=== PATIENT | male | born 1940 | race Caucasian/White ===

== ENCOUNTER → 2017-11-27 | Outpatient (CLI) | payer MEDICARE, OTHER, MEDICAID | END | disposition home or self-care (01) | LOC: PUL 09:28 | DX: C34.90 Malignant neoplasm of unspecified part of unspecified bronchus or lung (principal) | CPT/HCPCS: 94010 ==

== ENCOUNTER 2017-12-09 14:04 | Emergency (ER) | payer MEDICARE, OTHER ==
[2017-12-09] MEDS: ONDANSETRON (ODT) 4 MG TAB ODT (15:45)
[2017-12-09] MEDS: HYDROCODONE/APAP (5/325) TAB PO (15:45)
== END 2017-12-09 18:06 | disposition home or self-care (01) ==
LOC: E/R 14:04
DX: S42.201A Unspecified fracture of upper end of right humerus, initial encounter for closed fracture (principal); I10 Essential (primary) hypertension; E11.9 Type 2 diabetes mellitus without complications; I25.10 Atherosclerotic heart disease of native coronary artery without angina pectoris; W19.XXXA Unspecified fall, initial encounter; Y92.9 Unspecified place or not applicable; Z85.118 Personal history of other malignant neoplasm of bronchus and lung; Z79.4 Long term (current) use of insulin; Z79.82 Long term (current) use of aspirin
CPT/HCPCS: 29105; 73030-RT; 73060-RT; 73080-RT; 99283-25

== ENCOUNTER 2018-10-04 12:56 | Inpatient (IN) | payer MEDICARE, MEDICAID, OTHER ==
[2018-10-04 13:19] LABS: ADD MAN DIFF? NO
[2018-10-04 13:23] LABS: ABNORMAL IP MESSAGE 1; BASOPHIL # 0.2 10^3/ul (0.0-0.1); BASOPHILS % 1.4 % (0.0-2.0); EOSINOPHILS # 0.2 10^3/ul (0.0-0.5); EOSINOPHILS % 1.4 % (0.0-7.0); HEMATOCRIT 56.2 % (42.0-52.0); HEMOGLOBIN 17.7 g/dl (14.0-18.0); LYMPHOCYTES % 6.4 % (15.0-51.0); MEAN CORPUSCULAR HEMOGLOBIN 32.4 pg (29.0-33.0); MEAN CORPUSCULAR HGB CONC 31.5 g/dl (32.0-37.0); MEAN CORPUSCULAR VOLUME 102.7 fl (82.0-101.0); MEAN PLATELET VOLUME 10.6 fl (7.4-10.4); MONOCYTE # 0.8 10^3/ul (0.3-0.9); MONOCYTES % 4.8 % (0.0-11.0); NEUTROPHIL # 13.7 10^3/ul (1.6-7.5); NEUTROPHILS % 84.5 % (39.0-77.0); NUCLEATED RED BLOOD CELLS% 0.2 /100WBC (0.0-0.0); PLATELET COUNT 361 10^3/UL (140-415); RED BLOOD COUNT 5.47 10^6/ul (4.70-6.10); RED CELL DISTRIBUTION WIDTH 24.7 % (11.5-14.5)
[2018-10-04 13:23] LABS: WHITE BLOOD COUNT 16.2 10^3/ul (4.8-10.8)
[2018-10-04 13:43] LABS: PROTIME 15.3 Sec (11.9-14.9); PT RATIO 1.2
[2018-10-04 13:44] LABS: PARTIAL THROMBOPLASTIN TIME 31.4 Sec (23.0-35.0)
[2018-10-04 13:47] LABS: ALANINE AMINOTRANSFERASE 13 IU/L (13-69); ALBUMIN 3.4 g/dl (3.3-4.9); ALBUMIN/GLOBULIN RATIO 1.03; ALKALINE PHOSPHATASE 101 IU/L (42-121); ANION GAP 10 (5-13); ASPARTATE AMINO TRANSFERASE 20 IU/L (15-46); BILIRUBIN,INDIRECT 0.6 mg/dl (0-1.1); BILIRUBIN,TOTAL 0.6 mg/dl (0.2-1.3); BLOOD UREA NITROGEN 42 mg/dl (7-20); CALCIUM 8.7 mg/dl (8.4-10.2); CARBON DIOXIDE 31 mmol/L (21-31); CHLORIDE 110 mmol/L (97-110); CREATININE 1.44 mg/dl (0.61-1.24); GLUCOSE 249 mg/dl (70-220); POTASSIUM 3.2 mmol/L (3.5-5.1); SODIUM 151 mmol/L (135-144); TOTAL PROTEIN 6.7 g/dl (6.1-8.1)
[2018-10-04] MEDS: SODIUM CHLORIDE 0.9% 1L BAG IV* (13:53)
[2018-10-04] MEDS: CEFEPIME 2GM/50 ML (PMX) 50 ML IVPB (13:53)
[2018-10-04 13:59] LABS: TROPONIN-I < 0.012 ng/ml (0.000-0.120)
[2018-10-04 14:34] LABS: ADD UMIC YES; UR ASCORBIC ACID NEGATIVE (NEGATIVE); UR BACTERIA FEW /HPF (NONE SEEN); UR BILIRUBIN (Dip) NEGATIVE (NEGATIVE); UR BLOOD (Dip) NEGATIVE (NEGATIVE); UR CLARITY CLEAR (CLEAR); UR COLOR YELLOW (YELLOW); UR GLUCOSE (Dip) NEGATIVE (NEGATIVE); UR KETONES (Dip) NEGATIVE (NEGATIVE); UR LEUKOCYTE ESTERASE (Dip) NEGATIVE Leu/ul (NEGATIVE); UR MUCUS FEW /HPF (NONE SEEN); UR NITRITE (Dip) NEGATIVE (NEGATIVE); UR RBC 0 /HPF (0-5); UR SPECIFIC GRAVITY (Dip) 1.016 (1.003-1.030); UR TOTAL PROTEIN (Dip) 2+ mg/dl (NEGATIVE); UR UROBILINOGEN (Dip) NEGATIVE (NEGATIVE); UR WBC 1 /HPF (0-5)
[2018-10-04] MEDS: VANCOMYCIN 1 GM (PMX) 250 ML IVPB (14:47)
[2018-10-04] MEDS ORDERED: ONDANSETRON 4 MG INJ IV ×2 (15:30→18:00)
[2018-10-04] MEDS ORDERED: ACETAMINOPHEN 325 MG TAB PO (15:30)
[2018-10-04] MEDS ORDERED: VANCOMYCIN IV PER PHARMACY XX (18:00)
[2018-10-04] MEDS ORDERED: GLUCOSE GEL 15 GRAM TUBE PO ×2 (18:30)
[2018-10-04] MEDS ORDERED: GLUCAGON 1 MG INJ IM (18:30)
[2018-10-04] MEDS ORDERED: DEXTROSE 50% 50 ML SYRINGE IV (18:30)
[2018-10-04] MEDS ORDERED: GLUCOSE GEL 15 GRAM TUBE BUCCAL (18:30)
[2018-10-04 18:34] LABS: LACTIC ACID 1.5 mmol/L (0.5-2.0)
[2018-10-04 18:49] LABS: HEMOGLOBIN A1C 8.1 % (0-5.9)
[2018-10-04] MEDS: SOD CHLORIDE 0.9% 1,000 ML IV (20:12)
[2018-10-04] MEDS: INSULIN ASPART [NOVOLOG] 3 ML PEN SC (20:14)
[2018-10-05] MEDS: INSULIN ASPART [NOVOLOG] 3 ML PEN SC ×6 (00:53→21:42)
[2018-10-05 05:18] LABS: ADD MAN DIFF? NO
[2018-10-05 05:23] LABS: WHITE BLOOD COUNT 14.3 10^3/ul (4.8-10.8)
[2018-10-05 05:23] LABS: ABNORMAL IP MESSAGE 1; BASOPHIL # 0.2 10^3/ul (0.0-0.1); BASOPHILS % 1.3 % (0.0-2.0); EOSINOPHILS # 0.3 10^3/ul (0.0-0.5); EOSINOPHILS % 2.3 % (0.0-7.0); HEMATOCRIT 55.6 % (42.0-52.0); HEMOGLOBIN 17.3 g/dl (14.0-18.0); LYMPHOCYTES # 0.8 10^3/ul (0.8-2.9); LYMPHOCYTES % 5.7 % (15.0-51.0); MEAN CORPUSCULAR HEMOGLOBIN 32.3 pg (29.0-33.0); MEAN CORPUSCULAR HGB CONC 31.1 g/dl (32.0-37.0); MEAN CORPUSCULAR VOLUME 103.7 fl (82.0-101.0); MEAN PLATELET VOLUME 11.4 fl (7.4-10.4); MONOCYTE # 0.6 10^3/ul (0.3-0.9); MONOCYTES % 4.1 % (0.0-11.0); NEUTROPHIL # 12.1 10^3/ul (1.6-7.5); NEUTROPHILS % 84.6 % (39.0-77.0); PLATELET COUNT 308 10^3/UL (140-415); POSITIVE DIFF @See below; RED BLOOD COUNT 5.36 10^6/ul (4.70-6.10); RED CELL DISTRIBUTION WIDTH 24.7 % (11.5-14.5)
[2018-10-05 05:52] LABS: ANION GAP 12 (5-13); BLOOD UREA NITROGEN 40 mg/dl (7-20); CALCIUM 8.2 mg/dl (8.4-10.2); CARBON DIOXIDE 28 mmol/L (21-31); CHLORIDE 117 mmol/L (97-110); CREATININE 1.18 mg/dl (0.61-1.24); GLUCOSE 195 mg/dl (70-220); SODIUM 157 mmol/L (135-144)
[2018-10-05] MEDS: SOD CHLORIDE 0.9% 1,000 ML IV ×3 (07:29→14:00)
[2018-10-05] MEDS: ENOXAPARIN 30 MG/0.3 ML SYG SC (08:27)
[2018-10-05] MEDS: VANCOMYCIN 1 GM in DEXTROSE 5% 250 ML IVPB (12:11)
[2018-10-05] MEDS ORDERED: VANCOMYCIN 750 MG (PMX) 250 ML IVPB (13:00)
[2018-10-05] MEDS: AMLODIPINE 10 MG TAB PO (21:00)
[2018-10-05] MEDS: LEVETIRACETAM 500 MG TAB PO (21:00)
[2018-10-05] MEDS: HYDROXYUREA 500 MG CAP PO (21:00)
[2018-10-05] MEDS: ATORVASTATIN 80 MG TAB PO (21:00)
[2018-10-05] MEDS: CEFEPIME 1GM/50 ML (PMX) 50 ML IVPB (21:36)
[2018-10-05] MEDS: INSULIN GLARGINE [LANTus] (100 UNITS/ML) SYG SC (21:42)
[2018-10-06] MEDS: SOD CHLORIDE 0.9% 1,000 ML IV ×2 (00:37→11:19)
[2018-10-06] MEDS: INSULIN ASPART [NOVOLOG] 3 ML PEN SC ×6 (00:41→21:00)
[2018-10-06 04:50] LABS: ADD MAN DIFF? NO
[2018-10-06 04:51] LABS: WHITE BLOOD COUNT 14.6 10^3/ul (4.8-10.8)
[2018-10-06 04:51] LABS: ABNORMAL IP MESSAGE 1; BASOPHIL # 0.2 10^3/ul (0.0-0.1); BASOPHILS % 1.5 % (0.0-2.0); EOSINOPHILS # 0.4 10^3/ul (0.0-0.5); EOSINOPHILS % 2.9 % (0.0-7.0); HEMATOCRIT 55.8 % (42.0-52.0); HEMOGLOBIN 17.2 g/dl (14.0-18.0); LYMPHOCYTES % 6.5 % (15.0-51.0); MEAN CORPUSCULAR HGB CONC 30.8 g/dl (32.0-37.0); MEAN CORPUSCULAR VOLUME 103.9 fl (82.0-101.0); MEAN PLATELET VOLUME 11.4 fl (7.4-10.4); MONOCYTE # 0.7 10^3/ul (0.3-0.9); MONOCYTES % 4.6 % (0.0-11.0); NEUTROPHILS % 81.9 % (39.0-77.0); PLATELET COUNT 323 10^3/UL (140-415); POSITIVE DIFF @See below; RED BLOOD COUNT 5.37 10^6/ul (4.70-6.10); RED CELL DISTRIBUTION WIDTH 23.9 % (11.5-14.5)
[2018-10-06 05:21] LABS: ANION GAP 6 (5-13); BLOOD UREA NITROGEN 29 mg/dl (7-20); CALCIUM 8.3 mg/dl (8.4-10.2); CARBON DIOXIDE 30 mmol/L (21-31); CHLORIDE 123 mmol/L (97-110); CREATININE 0.95 mg/dl (0.61-1.24); GLUCOSE 134 mg/dl (70-220); POTASSIUM 3.1 mmol/L (3.5-5.1); SODIUM 159 mmol/L (135-144)
[2018-10-06] MEDS: AMIODARONE 200 MG TAB PO (08:45)
[2018-10-06] MEDS: ASPIRIN (EC) 81 MG TAB PO (08:45)
[2018-10-06] MEDS: FAMOTIDINE 20 MG TAB PO (08:46)
[2018-10-06] MEDS: LEVETIRACETAM 500 MG TAB PO ×2 (08:46→21:00)
[2018-10-06] MEDS: ESCITALOPRAM 10 MG TAB PO (08:46)
[2018-10-06] MEDS: FUROSEMIDE 20 MG TAB PO (08:46)
[2018-10-06] MEDS: HYDROXYUREA 500 MG CAP PO ×2 (08:46→21:00)
[2018-10-06] MEDS: AMLODIPINE 10 MG TAB PO ×2 (08:46→21:00)
[2018-10-06] MEDS: LISINOPRIL 20 MG TAB PO (08:47)
[2018-10-06] MEDS: CEFEPIME 1GM/50 ML (PMX) 50 ML IVPB ×2 (08:51→21:40)
[2018-10-06] MEDS: ENOXAPARIN 30 MG/0.3 ML SYG SC (08:52)
[2018-10-06] MEDS: VANCOMYCIN 1 GM in DEXTROSE 5% 250 ML IVPB (12:37)
[2018-10-06] MEDS: D5W-0.45 NACL + KCL 20 MEQ 1,000 ML IV (18:06)
[2018-10-06] MEDS: morphine 4 MG/ML VIAL IV (18:07)
[2018-10-06] MEDS: ATORVASTATIN 80 MG TAB PO (21:00)
[2018-10-06] MEDS: INSULIN GLARGINE [LANTus] (100 UNITS/ML) SYG SC (21:50)
[2018-10-06] MEDS: POTASSIUM CHLORIDE 100 ML IVPB (22:16)
[2018-10-07] MEDS: POTASSIUM CHLORIDE 100 ML IVPB (00:34)
[2018-10-07] MEDS: INSULIN ASPART [NOVOLOG] 3 ML PEN SC ×6 (02:01→20:51)
[2018-10-07] MEDS: D5W-0.45 NACL + KCL 20 MEQ 1,000 ML IV ×4 (03:30→23:30)
[2018-10-07] MEDS: FAMOTIDINE 20 MG TAB PO (09:00)
[2018-10-07] MEDS: LEVETIRACETAM 500 MG TAB PO ×2 (09:00→20:47)
[2018-10-07] MEDS: AMLODIPINE 10 MG TAB PO ×2 (09:00→20:48)
[2018-10-07] MEDS: LISINOPRIL 20 MG TAB PO (09:00)
[2018-10-07] MEDS: FUROSEMIDE 20 MG TAB PO (09:00)
[2018-10-07] MEDS: AMIODARONE 200 MG TAB PO (09:00)
[2018-10-07] MEDS: HYDROXYUREA 500 MG CAP PO ×2 (09:00→20:47)
[2018-10-07] MEDS: ESCITALOPRAM 10 MG TAB PO (09:00)
[2018-10-07] MEDS: ASPIRIN (EC) 81 MG TAB PO (09:00)
[2018-10-07] MEDS: CEFEPIME 1GM/50 ML (PMX) 50 ML IVPB ×2 (09:28→20:45)
[2018-10-07] MEDS: ENOXAPARIN 30 MG/0.3 ML SYG SC (09:31)
[2018-10-07] MEDS: VANCOMYCIN 1 GM in DEXTROSE 5% 250 ML IVPB (12:04)
[2018-10-07 17:39] LABS: ANION GAP 8 (5-13); BLOOD UREA NITROGEN 21 mg/dl (7-20); CALCIUM 8.2 mg/dl (8.4-10.2); CARBON DIOXIDE 31 mmol/L (21-31); CHLORIDE 119 mmol/L (97-110); CREATININE 0.86 mg/dl (0.61-1.24); GLUCOSE 191 mg/dl (70-220); POTASSIUM 3.8 mmol/L (3.5-5.1); SODIUM 158 mmol/L (135-144)
[2018-10-07] MEDS: ATORVASTATIN 80 MG TAB PO (20:48)
[2018-10-07] MEDS: INSULIN GLARGINE [LANTus] (100 UNITS/ML) SYG SC (20:50)
[2018-10-08] MEDS: INSULIN ASPART [NOVOLOG] 3 ML PEN SC ×6 (01:32→21:58)
[2018-10-08 05:45] LABS: ABNORMAL IP MESSAGE 1; HEMATOCRIT 55.6 % (42.0-52.0); HEMOGLOBIN 17.2 g/dl (14.0-18.0); MEAN CORPUSCULAR HGB CONC 30.9 g/dl (32.0-37.0); MEAN CORPUSCULAR VOLUME 106.5 fl (82.0-101.0); MEAN PLATELET VOLUME 11.8 fl (7.4-10.4); PLATELET COUNT 251 10^3/UL (140-415); POSITIVE DIFF @See below; RED BLOOD COUNT 5.22 10^6/ul (4.70-6.10); RED CELL DISTRIBUTION WIDTH 22.8 % (11.5-14.5)
[2018-10-08 05:45] LABS: WHITE BLOOD COUNT 12.5 10^3/ul (4.8-10.8)
[2018-10-08 06:16] LABS: ADD MAN DIFF? YES
[2018-10-08 06:29] LABS: ANION GAP 7 (5-13); BLOOD UREA NITROGEN 18 mg/dl (7-20); CALCIUM 8.3 mg/dl (8.4-10.2); CARBON DIOXIDE 30 mmol/L (21-31); CHLORIDE 120 mmol/L (97-110); CREATININE 0.94 mg/dl (0.61-1.24); GLUCOSE 195 mg/dl (70-220); POTASSIUM 3.8 mmol/L (3.5-5.1); SODIUM 157 mmol/L (135-144)
[2018-10-08] MEDS: D5W-0.45 NACL + KCL 20 MEQ 1,000 ML IV ×2 (07:32→08:55)
[2018-10-08 07:48] LABS: ANISOCYTOSIS 1+ (0-0); BAND NEUTROPHILS #M 2.2 10^3/ul (0.0-0.6); BAND NEUTROPHILS % (M) 18 % (0-4); BASOPHIL #M 0.2 10^3/ul (0.0-0.0); BASOPHILS % (M) 2 % (0-2); BURR CELLS 1+ (0-0); EOSINOPHILS % (M) 1 % (0-7); LYMPHOCYTES #M 0.6 10^3/ul (0.8-2.9); LYMPHOCYTES % (M) 5 % (15-51); METAMYELOCYTES #M 0.1 10^3/ul (0.0-0.0); METAMYELOCYTES %M 1 % (0-0); MICROCYTOSIS 1+ (0-0); MONOCYTE #M 0.2 10^3/ul (0.3-0.9); MONOCYTES % (M) 2 % (0-11); MYELOCYTES #M 0.1 10^3/ul (0.0-0.0); MYELOCYTES % (M) 1 % (0-0); OVALOCYTES 2+ (0-0); PLATELET ESTIMATE NORMAL; POIKILOCYTOSIS 1+ (0-0); POLYCHROMASIA 3+ (0-0); REACTIVE LYMPHOCYTES #M 0.6 10^3/ul (0.0-0.0); REACTIVE LYMPHOCYTES% (M) 5 % (0-0); SCHISTOCYTES 1+ (0-0); SEG NEUT #M 8.4 10^3/ul (1.6-7.5); SEGMENTED NEUTROPHILS (M) % 65 % (39-77); SMUDGE%M 10 % (0-0)
[2018-10-08] MEDS: CEFEPIME 1GM/50 ML (PMX) 50 ML IVPB (08:49)
[2018-10-08] MEDS: ENOXAPARIN 30 MG/0.3 ML SYG SC (08:52)
[2018-10-08] MEDS: AMIODARONE 200 MG TAB PO (08:55)
[2018-10-08] MEDS: FUROSEMIDE 20 MG TAB PO (08:56)
[2018-10-08] MEDS: LISINOPRIL 20 MG TAB PO (08:56)
[2018-10-08] MEDS: ESCITALOPRAM 10 MG TAB PO (08:56)
[2018-10-08] MEDS: LEVETIRACETAM 500 MG TAB PO (08:56)
[2018-10-08] MEDS: FAMOTIDINE 20 MG TAB PO (08:56)
[2018-10-08] MEDS: ASPIRIN (EC) 81 MG TAB PO (08:56)
[2018-10-08] MEDS: AMLODIPINE 10 MG TAB PO ×2 (08:56→21:44)
[2018-10-08] MEDS: HYDROXYUREA 500 MG CAP PO ×2 (08:56→21:00)
[2018-10-08 11:50] LABS: VANCOMYCIN,TROUGH 9.5 ug/ml (10.0-20.0)
[2018-10-08] MEDS: POTASSIUM CHLORIDE 30 MEQ in DEXTROSE 5% 1,000 ML IV (13:19)
[2018-10-08 19:01] LABS: CREATINE KINASE 30 IU/L (23-200)
[2018-10-08 19:13] LABS: CK INDEX 1.2; CK-MB 0.35 ng/ml (0.0-2.4); TROPONIN-I < 0.012 ng/ml (0.000-0.120)
[2018-10-08] MEDS: ATORVASTATIN 80 MG TAB PO (21:42)
[2018-10-08] MEDS: INSULIN GLARGINE [LANTus] (100 UNITS/ML) SYG SC (21:44)
[2018-10-08] MEDS: LEVETIRACETAM 500 MG (PMX) 100 ML IVPB (21:52)
[2018-10-09] MEDS: POTASSIUM CHLORIDE 30 MEQ in DEXTROSE 5% 1,000 ML IV ×3 (00:42→16:12)
[2018-10-09 01:11] LABS: CREATINE KINASE 28 IU/L (23-200)
[2018-10-09 01:25] LABS: CK INDEX 1.3; CK-MB 0.35 ng/ml (0.0-2.4); TROPONIN-I < 0.012 ng/ml (0.000-0.120)
[2018-10-09 05:45] LABS: ADD MAN DIFF? NO
[2018-10-09 05:58] LABS: WHITE BLOOD COUNT 14.1 10^3/ul (4.8-10.8)
[2018-10-09 05:58] LABS: ABNORMAL IP MESSAGE 1; BASOPHIL # 0.2 10^3/ul (0.0-0.1); BASOPHILS % 1.1 % (0.0-2.0); EOSINOPHILS # 0.4 10^3/ul (0.0-0.5); EOSINOPHILS % 2.6 % (0.0-7.0); HEMATOCRIT 52.8 % (42.0-52.0); LYMPHOCYTES # 1.1 10^3/ul (0.8-2.9); LYMPHOCYTES % 7.6 % (15.0-51.0); MEAN CORPUSCULAR HEMOGLOBIN 32.7 pg (29.0-33.0); MEAN CORPUSCULAR HGB CONC 30.3 g/dl (32.0-37.0); MEAN CORPUSCULAR VOLUME 107.8 fl (82.0-101.0); MEAN PLATELET VOLUME 13.1 fl (7.4-10.4); MONOCYTE # 0.8 10^3/ul (0.3-0.9); MONOCYTES % 5.3 % (0.0-11.0); NEUTROPHIL # 11.3 10^3/ul (1.6-7.5); NEUTROPHILS % 80.4 % (39.0-77.0); PLATELET COUNT 265 10^3/UL (140-415); POSITIVE DIFF @See below; RED CELL DISTRIBUTION WIDTH 21.8 % (11.5-14.5)
[2018-10-09] MEDS: INSULIN ASPART [NOVOLOG] 3 ML PEN SC ×4 (06:00→23:49)
[2018-10-09 06:12] LABS: CHOL/HDL RATIO 4.1 RATIO; HDL CHOLESTEROL 20 mg/dl (31-75); LDL CHOLESTEROL,CALCULATED 44 mg/dl; TRIGLYCERIDES 96 mg/dl (0-149)
[2018-10-09 06:12] LABS: CHOLESTEROL 83 mg/dl (100-200)
[2018-10-09 06:18] LABS: CREATINE KINASE 40 IU/L (23-200)
[2018-10-09 06:20] LABS: ANION GAP 5 (5-13); BLOOD UREA NITROGEN 20 mg/dl (7-20); CARBON DIOXIDE 31 mmol/L (21-31); CHLORIDE 118 mmol/L (97-110); CREATININE 0.99 mg/dl (0.61-1.24); GLUCOSE 229 mg/dl (70-220); POTASSIUM 4.1 mmol/L (3.5-5.1); SODIUM 154 mmol/L (135-144)
[2018-10-09 06:27] LABS: CK INDEX 0.7; CK-MB 0.28 ng/ml (0.0-2.4); TROPONIN-I < 0.012 ng/ml (0.000-0.120)
[2018-10-09 09:03] LABS: ANISOCYTOSIS 1+ (0-0); BAND NEUTROPHILS #M 1.6 10^3/ul (0.0-0.6); BAND NEUTROPHILS % (M) 12 % (0-4); BASOPHIL #M 0.1 10^3/ul (0.0-0.0); BASOPHILS % (M) 1 % (0-2); EOSINOPHILS % (M) 4 % (0-7); GIANT THROMBO% (M) 1 % (0-0); LYMPHOCYTES #M 1.2 10^3/ul (0.8-2.9); LYMPHOCYTES % (M) 9 % (15-51); METAMYELOCYTES #M 0.1 10^3/ul (0.0-0.0); METAMYELOCYTES %M 1 % (0-0); MONOCYTE #M 0.7 10^3/ul (0.3-0.9); MONOCYTES % (M) 5 % (0-11); OVALOCYTES 1+ (0-0); PLATELET ESTIMATE NORMAL; POIKILOCYTOSIS 1+ (0-0); POLYCHROMASIA 2+ (0-0); REACTIVE LYMPHOCYTES #M 0.1 10^3/ul (0.0-0.0); REACTIVE LYMPHOCYTES% (M) 1 % (0-0); SEG NEUT #M 9.7 10^3/ul (1.6-7.5); SEGMENTED NEUTROPHILS (M) % 67 % (39-77); SMUDGE%M 7 % (0-0); SPHEROCYTES 1+ (0-0); TARGET CELLS 1+ (0-0)
[2018-10-09] MEDS: ASPIRIN (EC) 81 MG TAB PO (10:26)
[2018-10-09] MEDS: AMIODARONE 200 MG TAB NGT (10:27)
[2018-10-09] MEDS: FAMOTIDINE 20 MG TAB NGT (10:27)
[2018-10-09] MEDS: LISINOPRIL 20 MG TAB PO (10:28)
[2018-10-09] MEDS: LEVETIRACETAM 500 MG (PMX) 100 ML IVPB ×2 (10:43→20:53)
[2018-10-09] MEDS: HYDROXYUREA NGT ×2 (12:40→21:04)
[2018-10-09] MEDS ORDERED: ATORVASTATIN 80 MG TAB (19:50)
[2018-10-09] MEDS: ATORVASTATIN 80 MG TAB NGT (20:53)
[2018-10-09] MEDS: INSULIN GLARGINE [LANTus] (100 UNITS/ML) SYG SC (21:02)
[2018-10-10] MEDS: POTASSIUM CHLORIDE 30 MEQ in DEXTROSE 5% 1,000 ML IV ×2 (02:06→04:00)
[2018-10-10 06:01] LABS: PLATELET COUNT 216 10^3/UL (140-415)
[2018-10-10 06:02] LABS: ABNORMAL IP MESSAGE 1; HEMATOCRIT 50.7 % (42.0-52.0); HEMOGLOBIN 15.3 g/dl (14.0-18.0); MEAN CORPUSCULAR HEMOGLOBIN 32.9 pg (29.0-33.0); MEAN CORPUSCULAR HGB CONC 30.2 g/dl (32.0-37.0); PLATELET COUNT 180 10^3/UL (140-415); POSITIVE DIFF @See below; RED BLOOD COUNT 4.65 10^6/ul (4.70-6.10); RED CELL DISTRIBUTION WIDTH 21.4 % (11.5-14.5)
[2018-10-10 06:02] LABS: WHITE BLOOD COUNT 12.7 10^3/ul (4.8-10.8)
[2018-10-10 06:18] LABS: PROTIME 14.3 Sec (11.9-14.9); PT RATIO 1.1
[2018-10-10 06:19] LABS: PARTIAL THROMBOPLASTIN TIME 34.6 Sec (23.0-35.0)
[2018-10-10 06:21] LABS: THROMBIN TIME 18.4 SEC (13.8-19.1)
[2018-10-10 06:23] LABS: ADD MAN DIFF? YES
[2018-10-10] MEDS: INSULIN ASPART [NOVOLOG] 3 ML PEN SC ×4 (06:25→23:55)
[2018-10-10 06:34] LABS: ANION GAP 3 (5-13); BLOOD UREA NITROGEN 34 mg/dl (7-20); CALCIUM 7.5 mg/dl (8.4-10.2); CARBON DIOXIDE 28 mmol/L (21-31); CHLORIDE 115 mmol/L (97-110); CREATININE 1.16 mg/dl (0.61-1.24); GLUCOSE 326 mg/dl (70-220); POTASSIUM 4.6 mmol/L (3.5-5.1); SODIUM 146 mmol/L (135-144)
[2018-10-10] MEDS ORDERED: SEVOFLURANE 15 MIN (07:00)
[2018-10-10 07:54] LABS: ANISOCYTOSIS 1+ (0-0); BAND NEUTROPHILS #M 1.5 10^3/ul (0.0-0.6); BAND NEUTROPHILS % (M) 12 % (0-4); EOSINOPHILS % (M) 2 % (0-7); GIANT THROMBO% (M) 8 % (0-0); LYMPHOCYTES #M 1.1 10^3/ul (0.8-2.9); LYMPHOCYTES % (M) 9 % (15-51); METAMYELOCYTES #M 0.1 10^3/ul (0.0-0.0); METAMYELOCYTES %M 1 % (0-0); MONOCYTE #M 0.5 10^3/ul (0.3-0.9); MONOCYTES % (M) 4 % (0-11); OVALOCYTES 1+ (0-0); PLATELET ESTIMATE NORMAL; POIKILOCYTOSIS 2+ (0-0); POLYCHROMASIA 2+ (0-0); REACTIVE LYMPHOCYTES #M 0.1 10^3/ul (0.0-0.0); REACTIVE LYMPHOCYTES% (M) 1 % (0-0); SEG NEUT #M 9.2 10^3/ul (1.6-7.5); SEGMENTED NEUTROPHILS (M) % 71 % (39-77); SMUDGE%M 9 % (0-0)
[2018-10-10] MEDS: ASPIRIN (EC) 81 MG TAB PO (09:00)
[2018-10-10] MEDS: ESCITALOPRAM 10 MG TAB NGT (09:00)
[2018-10-10] MEDS: LISINOPRIL 20 MG TAB PO (09:00)
[2018-10-10] MEDS: AMIODARONE 200 MG TAB NGT (09:00)
[2018-10-10] MEDS: HYDROXYUREA NGT ×2 (09:00→21:00)
[2018-10-10] MEDS: FAMOTIDINE 20 MG TAB NGT (09:00)
[2018-10-10] MEDS: LEVETIRACETAM 500 MG (PMX) 100 ML IVPB ×2 (10:33→20:34)
[2018-10-10] MEDS ORDERED: GELATIN SIZE 100 SPONGE (15:11)
[2018-10-10] MEDS ORDERED: THROMBIN 5000 UNIT VIAL (15:11)
[2018-10-10] MEDS ORDERED: BACITRACIN/POLYMYXIN 28.35 GM OINT TOP (15:11)
[2018-10-10] MEDS ORDERED: BUPIVACAINE 0.5%/EPI (SDV) 30 ML INJ (15:11)
[2018-10-10] MEDS ORDERED: LIDOCAINE 1% (MPF) 30 ML INJ (15:11)
[2018-10-10] MEDS ORDERED: MIDAZOLAM 1 MG/ML 2 ML INJ (15:17)
[2018-10-10] MEDS ORDERED: ROCURONIUM 50 MG INJ (15:17)
[2018-10-10] MEDS ORDERED: FENTAnyl 50 MCG/ML VIAL (15:17)
[2018-10-10] MEDS ORDERED: ETOMIDATE 20 MG INJ (15:17)
[2018-10-10] MEDS ORDERED: PHENYLephrine (100 MCG/ML) 5ML SYG ×2 (15:29→16:25)
[2018-10-10] MEDS ORDERED: ONDANSETRON 4 MG INJ IV (15:30)
[2018-10-10] MEDS ORDERED: hydrALAzine 20 MG INJ IV (15:30)
[2018-10-10] MEDS ORDERED: HYDROmorphONE 0.5 MG/0.5 ML SYG IV ×3 (15:30)
[2018-10-10] MEDS ORDERED: FENTAnyl 50 MCG/ML VIAL IV ×3 (15:30)
[2018-10-10] MEDS ORDERED: EPHEDrine SULFATE 50 MG/5 ML SYG IV (15:30)
[2018-10-10] MEDS ORDERED: LABETALOL HCL 20MG INJ IV (15:30)
[2018-10-10] MEDS ORDERED: ONDANSETRON 4 MG INJ (16:25)
[2018-10-10] MEDS ORDERED: DEXAMETHASONE 4 MG/ML 5 ML INJ (16:25)
[2018-10-10] MEDS ORDERED: METOCLOPRAMIDE 10 MG INJ (16:25)
[2018-10-10] MEDS ORDERED: CEFAZOLIN 1 GM INJ (16:25)
[2018-10-10] MEDS ORDERED: niCARdipine-NS 0.1MG/ML DRIP 200 ML IV (17:00)
[2018-10-10] MEDS: POLYMYXIN/BACITRACIN 1L IRRIG IRR (17:13)
[2018-10-10 17:56] LABS: AADO2 Arterial 549.2 mmHg (7.0-24.0); Arterial Base Excess -4.7 mmol/L (-3.0-3); Arterial Blood Gas Oxygen Sat 96.6 mmHG (95.0-100.0); Arterial COHb 0.6 % (0.0-3.0); Arterial Fraction of Oxyhgb 95.6 % (93.0-99.0); Arterial HCO3 24.5 mmol/L (22.0-26.0); Arterial MetHb 0.4 % (0.0-1.5); MODE VENT - AC; Site A-Line
[2018-10-10] MEDS: CEFAZOLIN 2 GM/50 ML (PMX) 50 ML IVPB (18:04)
[2018-10-10] MEDS: NS + KCL 20 MEQ 1,000 ML IV (18:05)
[2018-10-10] MEDS: ATORVASTATIN 80 MG TAB NGT (20:35)
[2018-10-10 20:46] LABS: AADO2 Arterial 571.6 mmHg (7.0-24.0); Arterial Base Excess -2.9 mmol/L (-3.0-3); Arterial Blood Gas Oxygen Sat 96.4 mmHG (95.0-100.0); Arterial COHb 0.9 % (0.0-3.0); Arterial Fraction of Oxyhgb 95.1 % (93.0-99.0); Arterial HCO3 24.1 mmol/L (22.0-26.0); Arterial MetHb 0.4 % (0.0-1.5); MODE VENT - AC; Site A-Line
[2018-10-10] MEDS: INSULIN GLARGINE [LANTus] (100 UNITS/ML) SYG SC (21:02)
[2018-10-10] MEDS ORDERED: SOD CHLORIDE 0.9% 500 ML IV (22:30)
[2018-10-10] MEDS: SOD CHLORIDE 0.9% 500 ML IV (22:59)
[2018-10-11] MEDS: SOD CHLORIDE 0.9% 500 ML IV (00:05)
[2018-10-11] MEDS: NORepinephrine 8MG/250 ML (PMX 250 ML IV (01:02)
[2018-10-11 05:28] LABS: WHITE BLOOD COUNT 17.4 10^3/ul (4.8-10.8)
[2018-10-11 05:28] LABS: ABNORMAL IP MESSAGE 1; HEMATOCRIT 48.7 % (42.0-52.0); HEMOGLOBIN 14.9 g/dl (14.0-18.0); MEAN CORPUSCULAR HEMOGLOBIN 33.1 pg (29.0-33.0); MEAN CORPUSCULAR HGB CONC 30.6 g/dl (32.0-37.0); MEAN CORPUSCULAR VOLUME 108.2 fl (82.0-101.0); PLATELET COUNT 292 10^3/UL (140-415); POSITIVE DIFF @See below; RED CELL DISTRIBUTION WIDTH 20.8 % (11.5-14.5)
[2018-10-11 05:39] LABS: ADD MAN DIFF? YES
[2018-10-11 06:04] LABS: ANION GAP 7 (5-13); BLOOD UREA NITROGEN 35 mg/dl (7-20); CALCIUM 7.4 mg/dl (8.4-10.2); CARBON DIOXIDE 25 mmol/L (21-31); CHLORIDE 116 mmol/L (97-110); CREATININE 1.08 mg/dl (0.61-1.24); GLUCOSE 266 mg/dl (70-220); SODIUM 148 mmol/L (135-144)
[2018-10-11 06:14] LABS: MAGNESIUM 2.1 mg/dl (1.7-2.5)
[2018-10-11 06:14] LABS: PHOSPHORUS 3.3 mg/dl (2.5-4.9)
[2018-10-11] MEDS: NS + KCL 20 MEQ 1,000 ML IV ×3 (06:30→16:34)
[2018-10-11] MEDS: INSULIN ASPART [NOVOLOG] 3 ML PEN SC ×3 (06:38→18:00)
[2018-10-11 08:15] LABS: AADO2 Arterial 334.3 mmHg (7.0-24.0); Arterial Base Excess -4.6 mmol/L (-3.0-3); Arterial Blood Gas Oxygen Sat 98.1 mmHG (95.0-100.0); Arterial Fraction of Oxyhgb 96.9 % (93.0-99.0); Arterial HCO3 21.1 mmol/L (22.0-26.0); Arterial MetHb 0.2 % (0.0-1.5); Arterial pCO2 41.2 mmhg (35-45); MODE VENT - AC; Site A-Line
[2018-10-11] MEDS: HYDROXYUREA NGT ×2 (08:25→20:36)
[2018-10-11] MEDS: LISINOPRIL 20 MG TAB PO (08:36)
[2018-10-11 08:51] LABS: ANISOCYTOSIS 1+ (0-0); BAND NEUTROPHILS #M 2.9 10^3/ul (0.0-0.6); BAND NEUTROPHILS % (M) 17 % (0-4); BURR CELLS 1+ (0-0); GIANT THROMBO% (M) 1 % (0-0); LYMPHOCYTES #M 0.1 10^3/ul (0.8-2.9); LYMPHOCYTES % (M) 1 % (15-51); MONOCYTE #M 0.3 10^3/ul (0.3-0.9); MONOCYTES % (M) 2 % (0-11); MYELOCYTES #M 0.1 10^3/ul (0.0-0.0); MYELOCYTES % (M) 1 % (0-0); OVALOCYTES 1+ (0-0); PLATELET ESTIMATE NORMAL; POIKILOCYTOSIS 1+ (0-0); POLYCHROMASIA 2+ (0-0); SEG NEUT #M 14.3 10^3/ul (1.6-7.5); SEGMENTED NEUTROPHILS (M) % 79 % (39-77); SMUDGE%M 5 % (0-0)
[2018-10-11] MEDS: ESCITALOPRAM 10 MG TAB NGT (09:14)
[2018-10-11] MEDS: AMIODARONE 200 MG TAB NGT (09:14)
[2018-10-11] MEDS: LEVETIRACETAM 500 MG (PMX) 100 ML IVPB ×2 (09:14→21:10)
[2018-10-11] MEDS: FAMOTIDINE 20 MG TAB NGT (09:14)
[2018-10-11] MEDS: ATORVASTATIN 80 MG TAB NGT (20:05)
[2018-10-11] MEDS: INSULIN GLARGINE [LANTus] (100 UNITS/ML) SYG SC (20:10)
[2018-10-12] MEDS: NS + KCL 20 MEQ 1,000 ML IV ×2 (02:39→18:24)
[2018-10-12 04:57] LABS: ADD MAN DIFF? NO
[2018-10-12 05:07] LABS: BASOPHIL # 0.1 10^3/ul (0.0-0.1); BASOPHILS % 0.4 % (0.0-2.0); EOSINOPHILS % 0.2 % (0.0-7.0); HEMATOCRIT 48.8 % (42.0-52.0); HEMOGLOBIN 14.9 g/dl (14.0-18.0); LYMPHOCYTES # 0.6 10^3/ul (0.8-2.9); LYMPHOCYTES % 3.5 % (15.0-51.0); MEAN CORPUSCULAR HEMOGLOBIN 33.1 pg (29.0-33.0); MEAN CORPUSCULAR HGB CONC 30.5 g/dl (32.0-37.0); MEAN CORPUSCULAR VOLUME 108.4 fl (82.0-101.0); MEAN PLATELET VOLUME 12.9 fl (7.4-10.4); MONOCYTE # 0.8 10^3/ul (0.3-0.9); MONOCYTES % 4.3 % (0.0-11.0); NEUTROPHIL # 16.2 10^3/ul (1.6-7.5); NEUTROPHILS % 88.4 % (39.0-77.0); PLATELET COUNT 292 10^3/UL (140-415); POSITIVE DIFF @See below; RED CELL DISTRIBUTION WIDTH 20.9 % (11.5-14.5)
[2018-10-12 05:07] LABS: WHITE BLOOD COUNT 18.3 10^3/ul (4.8-10.8)
[2018-10-12 05:30] LABS: PHOSPHORUS 2.2 mg/dl (2.5-4.9)
[2018-10-12 05:30] LABS: MAGNESIUM 2.4 mg/dl (1.7-2.5)
[2018-10-12 05:39] LABS: ANION GAP 5 (5-13); BLOOD UREA NITROGEN 32 mg/dl (7-20); CARBON DIOXIDE 25 mmol/L (21-31); CHLORIDE 119 mmol/L (97-110); CREATININE 0.91 mg/dl (0.61-1.24); GLUCOSE 75 mg/dl (70-220); POTASSIUM 4.6 mmol/L (3.5-5.1); SODIUM 149 mmol/L (135-144)
[2018-10-12] MEDS: INSULIN ASPART [NOVOLOG] 3 ML PEN SC ×4 (06:00→18:00)
[2018-10-12 08:04] LABS: ANISOCYTOSIS 2+ (0-0); BAND NEUTROPHILS #M 2.9 10^3/ul (0.0-0.6); BAND NEUTROPHILS % (M) 16 % (0-4); BURR CELLS 1+ (0-0); LYMPHOCYTES #M 0.3 10^3/ul (0.8-2.9); LYMPHOCYTES % (M) 2 % (15-51); METAMYELOCYTES #M 0.1 10^3/ul (0.0-0.0); METAMYELOCYTES %M 1 % (0-0); MICROCYTOSIS 1+ (0-0); MONOCYTE #M 0.7 10^3/ul (0.3-0.9); MONOCYTES % (M) 4 % (0-11); MYELOCYTES #M 0.1 10^3/ul (0.0-0.0); MYELOCYTES % (M) 1 % (0-0); OVALOCYTES 1+ (0-0); PLATELET ESTIMATE NORMAL; POIKILOCYTOSIS 3+ (0-0); POLYCHROMASIA 3+ (0-0); SEG NEUT #M 14.4 10^3/ul (1.6-7.5); SEGMENTED NEUTROPHILS (M) % 76 % (39-77)
[2018-10-12] MEDS: LISINOPRIL 20 MG TAB PO (08:24)
[2018-10-12] MEDS: LEVETIRACETAM 500 MG (PMX) 100 ML IVPB ×2 (08:35→20:21)
[2018-10-12] MEDS: ESCITALOPRAM 10 MG TAB NGT (08:36)
[2018-10-12] MEDS: AMIODARONE 200 MG TAB NGT (08:36)
[2018-10-12] MEDS: HYDROXYUREA NGT ×2 (08:38→20:22)
[2018-10-12] MEDS: FAMOTIDINE 20 MG TAB NGT (08:38)
[2018-10-12] MEDS ORDERED: VANCOMYCIN IV PER PHARMACY XX (11:00)
[2018-10-12] MEDS: CEFTRIAXONE 2 GM/50 ML (PMX) 50 ML IVPB (12:55)
[2018-10-12] MEDS: DEXTROSE 50% 50 ML SYRINGE IV (13:28)
[2018-10-12] MEDS: VANCOMYCIN HCL 1.5 GM in DEXTROSE 5% 250 ML IVPB (13:38)
[2018-10-12] MEDS: morphine 4 MG/ML VIAL IV (18:53)
[2018-10-12] MEDS: ATORVASTATIN 80 MG TAB NGT (20:16)
[2018-10-12] MEDS: INSULIN GLARGINE [LANTus] (100 UNITS/ML) SYG SC ×2 (20:47→21:00)
[2018-10-13] MEDS: DEXTROSE 50% 50 ML SYRINGE IV (01:14)
[2018-10-13] MEDS: INSULIN GLARGINE [LANTus] (100 UNITS/ML) SYG SC ×3 (01:47→20:24)
[2018-10-13 05:08] LABS: ADD MAN DIFF? NO
[2018-10-13 05:11] LABS: WHITE BLOOD COUNT 10.5 10^3/ul (4.8-10.8)
[2018-10-13 05:11] LABS: BASOPHIL # 0.1 10^3/ul (0.0-0.1); BASOPHILS % 0.8 % (0.0-2.0); EOSINOPHILS # 0.2 10^3/ul (0.0-0.5); EOSINOPHILS % 1.9 % (0.0-7.0); HEMATOCRIT 46.4 % (42.0-52.0); HEMOGLOBIN 14.1 g/dl (14.0-18.0); LYMPHOCYTES # 0.8 10^3/ul (0.8-2.9); LYMPHOCYTES % 7.4 % (15.0-51.0); MEAN CORPUSCULAR HEMOGLOBIN 32.7 pg (29.0-33.0); MEAN CORPUSCULAR HGB CONC 30.4 g/dl (32.0-37.0); MEAN CORPUSCULAR VOLUME 107.7 fl (82.0-101.0); MEAN PLATELET VOLUME 12.4 fl (7.4-10.4); MONOCYTE # 0.4 10^3/ul (0.3-0.9); MONOCYTES % 4.2 % (0.0-11.0); NEUTROPHIL # 8.7 10^3/ul (1.6-7.5); NEUTROPHILS % 82.6 % (39.0-77.0); PLATELET COUNT 257 10^3/UL (140-415); RED BLOOD COUNT 4.31 10^6/ul (4.70-6.10); RED CELL DISTRIBUTION WIDTH 20.2 % (11.5-14.5)
[2018-10-13] MEDS: INSULIN ASPART [NOVOLOG] 3 ML PEN SC ×7 (05:13→23:57)
[2018-10-13 05:32] LABS: ANION GAP -1 (5-13); BLOOD UREA NITROGEN 23 mg/dl (7-20); CALCIUM 7.8 mg/dl (8.4-10.2); CARBON DIOXIDE 27 mmol/L (21-31); CHLORIDE 123 mmol/L (97-110); CREATININE 0.77 mg/dl (0.61-1.24); GLUCOSE 102 mg/dl (70-220); POTASSIUM 4.1 mmol/L (3.5-5.1); SODIUM 149 mmol/L (135-144)
[2018-10-13] MEDS: ESCITALOPRAM 10 MG TAB NGT (08:38)
[2018-10-13] MEDS: LEVETIRACETAM 500 MG (PMX) 100 ML IVPB ×2 (08:38→20:22)
[2018-10-13] MEDS: LISINOPRIL 20 MG TAB PO (08:39)
[2018-10-13] MEDS: FAMOTIDINE 20 MG TAB NGT (08:39)
[2018-10-13] MEDS: AMIODARONE 200 MG TAB NGT (08:39)
[2018-10-13] MEDS: HYDROXYUREA NGT ×2 (09:00→20:23)
[2018-10-13] MEDS: CEFTRIAXONE 2 GM/50 ML (PMX) 50 ML IVPB (13:07)
[2018-10-13] MEDS: VANCOMYCIN HCL 1.25 GM in DEXTROSE 5% 250 ML IVPB (13:54)
[2018-10-13] MEDS: ATORVASTATIN 80 MG TAB NGT (20:21)
[2018-10-14 05:17] LABS: ADD MAN DIFF? NO
[2018-10-14 05:21] LABS: BASOPHIL # 0.1 10^3/ul (0.0-0.1); BASOPHILS % 0.7 % (0.0-2.0); EOSINOPHILS # 0.2 10^3/ul (0.0-0.5); EOSINOPHILS % 2.2 % (0.0-7.0); HEMATOCRIT 48.3 % (42.0-52.0); HEMOGLOBIN 14.8 g/dl (14.0-18.0); LYMPHOCYTES # 0.7 10^3/ul (0.8-2.9); LYMPHOCYTES % 6.6 % (15.0-51.0); MEAN CORPUSCULAR HEMOGLOBIN 32.8 pg (29.0-33.0); MEAN CORPUSCULAR HGB CONC 30.6 g/dl (32.0-37.0); MEAN CORPUSCULAR VOLUME 107.1 fl (82.0-101.0); MEAN PLATELET VOLUME 11.9 fl (7.4-10.4); MONOCYTE # 0.3 10^3/ul (0.3-0.9); MONOCYTES % 2.3 % (0.0-11.0); NEUTROPHIL # 9.3 10^3/ul (1.6-7.5); NUCLEATED RED BLOOD CELLS% 0.2 /100WBC (0.0-0.0); PLATELET COUNT 261 10^3/UL (140-415); POSITIVE DIFF @See below; RED BLOOD COUNT 4.51 10^6/ul (4.70-6.10); RED CELL DISTRIBUTION WIDTH 20.4 % (11.5-14.5)
[2018-10-14] MEDS: INSULIN ASPART [NOVOLOG] 3 ML PEN SC ×5 (05:21→20:39)
[2018-10-14 05:48] LABS: ANION GAP 3 (5-13); BLOOD UREA NITROGEN 20 mg/dl (7-20); CALCIUM 7.9 mg/dl (8.4-10.2); CARBON DIOXIDE 26 mmol/L (21-31); CHLORIDE 117 mmol/L (97-110); CREATININE 0.72 mg/dl (0.61-1.24); GLUCOSE 138 mg/dl (70-220); POTASSIUM 4.1 mmol/L (3.5-5.1); SODIUM 146 mmol/L (135-144)
[2018-10-14] MEDS: FAMOTIDINE 20 MG TAB NGT (08:38)
[2018-10-14] MEDS: LEVETIRACETAM 500 MG (PMX) 100 ML IVPB ×2 (08:38→20:31)
[2018-10-14] MEDS: AMIODARONE 200 MG TAB NGT (08:38)
[2018-10-14] MEDS: ESCITALOPRAM 10 MG TAB NGT (08:38)
[2018-10-14] MEDS: LISINOPRIL 20 MG TAB PO (08:38)
[2018-10-14] MEDS: HYDROXYUREA NGT ×2 (08:39→20:33)
[2018-10-14] MEDS: CEFTRIAXONE 2 GM/50 ML (PMX) 50 ML IVPB (12:23)
[2018-10-14 12:27] LABS: AADO2 Arterial 162.6 mmHg (7.0-24.0); Arterial Base Excess -4.4 mmol/L (-3.0-3); Arterial Blood Gas Oxygen Sat 95.9 mmHG (95.0-100.0); Arterial COHb 0.9 % (0.0-3.0); Arterial Fraction of Oxyhgb 94.8 % (93.0-99.0); Arterial HCO3 20.2 mmol/L (22.0-26.0); Arterial MetHb 0.2 % (0.0-1.5); Arterial pCO2 36.2 mmhg (35-45); Blood Gas PS 10; MODE VENT - CPAP; Site A-Line
[2018-10-14] MEDS: VANCOMYCIN HCL 1.25 GM in DEXTROSE 5% 250 ML IVPB (12:46)
[2018-10-14 14:05] LABS: ANION GAP 3 (5-13); BLOOD UREA NITROGEN 20 mg/dl (7-20); CALCIUM 7.9 mg/dl (8.4-10.2); CARBON DIOXIDE 30 mmol/L (21-31); CHLORIDE 111 mmol/L (97-110); CREATININE 0.69 mg/dl (0.61-1.24); GLUCOSE 178 mg/dl (70-220); POTASSIUM 3.8 mmol/L (3.5-5.1); SODIUM 144 mmol/L (135-144)
[2018-10-14] MEDS: ATORVASTATIN 80 MG TAB NGT (20:31)
[2018-10-14] MEDS: INSULIN DETEMIR [LEVEMIR] (100 UNITS/ML) SYG SC (20:42)
[2018-10-15] MEDS: INSULIN ASPART [NOVOLOG] 3 ML PEN SC ×6 (00:22→20:57)
[2018-10-15 05:11] LABS: ADD MAN DIFF? NO
[2018-10-15 05:30] LABS: BASOPHIL # 0.1 10^3/ul (0.0-0.1); BASOPHILS % 0.8 % (0.0-2.0); EOSINOPHILS # 0.3 10^3/ul (0.0-0.5); EOSINOPHILS % 2.5 % (0.0-7.0); HEMATOCRIT 47.9 % (42.0-52.0); HEMOGLOBIN 15.2 g/dl (14.0-18.0); LYMPHOCYTES # 0.9 10^3/ul (0.8-2.9); LYMPHOCYTES % 7.1 % (15.0-51.0); MEAN CORPUSCULAR HEMOGLOBIN 33.3 pg (29.0-33.0); MEAN CORPUSCULAR HGB CONC 31.7 g/dl (32.0-37.0); MEAN PLATELET VOLUME 12.1 fl (7.4-10.4); MONOCYTE # 0.3 10^3/ul (0.3-0.9); MONOCYTES % 2.3 % (0.0-11.0); NEUTROPHIL # 10.1 10^3/ul (1.6-7.5); NEUTROPHILS % 83.7 % (39.0-77.0); NUCLEATED RED BLOOD CELLS% 0.2 /100WBC (0.0-0.0); PLATELET COUNT 303 10^3/UL (140-415); RED BLOOD COUNT 4.56 10^6/ul (4.70-6.10); RED CELL DISTRIBUTION WIDTH 19.9 % (11.5-14.5)
[2018-10-15] MEDS: DILTIAZEM 25 MG INJ IV (06:00)
[2018-10-15 06:10] LABS: ANION GAP 2 (5-13); BLOOD UREA NITROGEN 19 mg/dl (7-20); CARBON DIOXIDE 32 mmol/L (21-31); CHLORIDE 110 mmol/L (97-110); CREATININE 0.79 mg/dl (0.61-1.24); GLUCOSE 133 mg/dl (70-220); POTASSIUM 3.9 mmol/L (3.5-5.1); SODIUM 144 mmol/L (135-144)
[2018-10-15] MEDS: DOCUSATE SODIUM 100 MG CAP PO (09:25)
[2018-10-15] MEDS: LISINOPRIL 20 MG TAB PO (09:27)
[2018-10-15] MEDS: ESCITALOPRAM 10 MG TAB NGT (09:27)
[2018-10-15] MEDS: FAMOTIDINE 20 MG TAB NGT (09:28)
[2018-10-15] MEDS: AMIODARONE 200 MG TAB NGT (09:28)
[2018-10-15] MEDS: LEVETIRACETAM 500 MG (PMX) 100 ML IVPB ×2 (09:31→22:11)
[2018-10-15] MEDS: INSULIN DETEMIR [LEVEMIR] (100 UNITS/ML) SYG SC ×2 (09:31→21:05)
[2018-10-15 11:04] LABS: AADO2 Arterial 79.7 mmHg (7.0-24.0); Arterial Base Excess 4.4 mmol/L (-3.0-3); Arterial Blood Gas Oxygen Sat 94.3 mmHG (95.0-100.0); Arterial COHb 0.9 % (0.0-3.0); Arterial Fraction of Oxyhgb 93.3 % (93.0-99.0); Arterial HCO3 28.3 mmol/L (22.0-26.0); Arterial MetHb 0.2 % (0.0-1.5); Arterial pCO2 39.7 mmhg (35-45); MODE NASAL CANNULA; Site LB
[2018-10-15] MEDS: HYDROXYUREA NGT ×2 (12:37→20:54)
[2018-10-15] MEDS: ATORVASTATIN 80 MG TAB NGT (20:51)
[2018-10-16] MEDS: INSULIN ASPART [NOVOLOG] 3 ML PEN SC ×6 (01:00→21:00)
[2018-10-16 05:20] LABS: ADD MAN DIFF? NO
[2018-10-16 05:38] LABS: WHITE BLOOD COUNT 10.9 10^3/ul (4.8-10.8)
[2018-10-16 05:38] LABS: BASOPHIL # 0.1 10^3/ul (0.0-0.1); BASOPHILS % 0.9 % (0.0-2.0); EOSINOPHILS # 0.4 10^3/ul (0.0-0.5); EOSINOPHILS % 3.2 % (0.0-7.0); HEMATOCRIT 45.4 % (42.0-52.0); HEMOGLOBIN 14.6 g/dl (14.0-18.0); LYMPHOCYTES # 1.1 10^3/ul (0.8-2.9); LYMPHOCYTES % 10.4 % (15.0-51.0); MEAN CORPUSCULAR HEMOGLOBIN 33.8 pg (29.0-33.0); MEAN CORPUSCULAR HGB CONC 32.2 g/dl (32.0-37.0); MEAN CORPUSCULAR VOLUME 105.1 fl (82.0-101.0); MEAN PLATELET VOLUME 11.2 fl (7.4-10.4); MONOCYTE # 0.4 10^3/ul (0.3-0.9); MONOCYTES % 3.8 % (0.0-11.0); NEUTROPHIL # 8.6 10^3/ul (1.6-7.5); NEUTROPHILS % 78.4 % (39.0-77.0); NUCLEATED RED BLOOD CELLS # 0.1 10^3/ul (0.0-0.0); NUCLEATED RED BLOOD CELLS% 0.5 /100WBC (0.0-0.0); PLATELET COUNT 251 10^3/UL (140-415); POSITIVE DIFF @See below; RED BLOOD COUNT 4.32 10^6/ul (4.70-6.10); RED CELL DISTRIBUTION WIDTH 19.7 % (11.5-14.5)
[2018-10-16 05:56] LABS: ANION GAP 5 (5-13); BLOOD UREA NITROGEN 21 mg/dl (7-20); CALCIUM 7.7 mg/dl (8.4-10.2); CARBON DIOXIDE 31 mmol/L (21-31); CHLORIDE 108 mmol/L (97-110); CREATININE 0.71 mg/dl (0.61-1.24); GLUCOSE 87 mg/dl (70-220); POTASSIUM 3.8 mmol/L (3.5-5.1); SODIUM 144 mmol/L (135-144)
[2018-10-16 07:46] LABS: AADO2 Arterial 76.5 mmHg (7.0-24.0); Arterial Base Excess 3.8 mmol/L (-3.0-3); Arterial Blood Gas Oxygen Sat 93.6 mmHG (95.0-100.0); Arterial COHb 0.7 % (0.0-3.0); Arterial Fraction of Oxyhgb 92.8 % (93.0-99.0); Arterial HCO3 28.5 mmol/L (22.0-26.0); Arterial MetHb 0.2 % (0.0-1.5); Arterial pCO2 42.8 mmhg (35-45); MODE NASAL CANNULA; Site Right Brachial
[2018-10-16] MEDS: LEVETIRACETAM 500 MG (PMX) 100 ML IVPB ×2 (08:56→20:34)
[2018-10-16] MEDS: FAMOTIDINE 20 MG TAB NGT (08:57)
[2018-10-16] MEDS: AMIODARONE 200 MG TAB NGT (08:57)
[2018-10-16] MEDS: LISINOPRIL 20 MG TAB PO (08:58)
[2018-10-16] MEDS: ESCITALOPRAM 10 MG TAB NGT (08:58)
[2018-10-16] MEDS: HYDROXYUREA NGT ×2 (09:01→22:34)
[2018-10-16] MEDS: INSULIN DETEMIR [LEVEMIR] (100 UNITS/ML) SYG SC (09:09)
[2018-10-16] MEDS: ATORVASTATIN 80 MG TAB NGT (20:33)
[2018-10-17] MEDS: INSULIN ASPART [NOVOLOG] 3 ML PEN SC ×4 (01:00→18:00)
[2018-10-17 05:15] LABS: ADD MAN DIFF? NO
[2018-10-17 05:21] LABS: BASOPHIL # 0.1 10^3/ul (0.0-0.1); BASOPHILS % 0.9 % (0.0-2.0); EOSINOPHILS # 0.3 10^3/ul (0.0-0.5); EOSINOPHILS % 3.2 % (0.0-7.0); HEMATOCRIT 43.2 % (42.0-52.0); HEMOGLOBIN 13.6 g/dl (14.0-18.0); LYMPHOCYTES # 0.9 10^3/ul (0.8-2.9); LYMPHOCYTES % 10.4 % (15.0-51.0); MEAN CORPUSCULAR HEMOGLOBIN 33.3 pg (29.0-33.0); MEAN CORPUSCULAR HGB CONC 31.5 g/dl (32.0-37.0); MEAN CORPUSCULAR VOLUME 105.6 fl (82.0-101.0); MEAN PLATELET VOLUME 11.4 fl (7.4-10.4); MONOCYTE # 0.2 10^3/ul (0.3-0.9); MONOCYTES % 2.8 % (0.0-11.0); NEUTROPHIL # 6.8 10^3/ul (1.6-7.5); NEUTROPHILS % 78.9 % (39.0-77.0); PLATELET COUNT 280 10^3/UL (140-415); RED BLOOD COUNT 4.09 10^6/ul (4.70-6.10); RED CELL DISTRIBUTION WIDTH 19.4 % (11.5-14.5)
[2018-10-17 05:21] LABS: WHITE BLOOD COUNT 8.6 10^3/ul (4.8-10.8)
[2018-10-17 05:46] LABS: ANION GAP 1 (5-13); BLOOD UREA NITROGEN 23 mg/dl (7-20); CALCIUM 7.6 mg/dl (8.4-10.2); CARBON DIOXIDE 33 mmol/L (21-31); CHLORIDE 104 mmol/L (97-110); GLUCOSE 109 mg/dl (70-220); POTASSIUM 4.5 mmol/L (3.5-5.1); SODIUM 138 mmol/L (135-144)
[2018-10-17] MEDS: INSULIN DETEMIR [LEVEMIR] (100 UNITS/ML) SYG SC ×2 (08:42→21:48)
[2018-10-17] MEDS: LEVETIRACETAM 500 MG (PMX) 100 ML IVPB ×2 (09:30→21:44)
[2018-10-17] MEDS: ESCITALOPRAM 10 MG TAB NGT (09:30)
[2018-10-17] MEDS: AMIODARONE 200 MG TAB NGT (09:30)
[2018-10-17] MEDS: LISINOPRIL 20 MG TAB PO (09:31)
[2018-10-17] MEDS: FAMOTIDINE 20 MG TAB NGT (09:31)
[2018-10-17] MEDS: HYDROXYUREA NGT (09:35)
[2018-10-17] MEDS ORDERED: morphine 2 MG INJ IV (11:30)
[2018-10-17] MEDS: ATORVASTATIN 80 MG TAB NGT (21:43)
[2018-10-18] MEDS: INSULIN ASPART [NOVOLOG] 3 ML PEN SC ×5 (00:28→22:48)
[2018-10-18 05:29] LABS: ADD MAN DIFF? NO
[2018-10-18 05:35] LABS: ABNORMAL IP MESSAGE 1; BASOPHIL # 0.1 10^3/ul (0.0-0.1); BASOPHILS % 1.5 % (0.0-2.0); EOSINOPHILS # 0.2 10^3/ul (0.0-0.5); EOSINOPHILS % 2.6 % (0.0-7.0); HEMATOCRIT 43.8 % (42.0-52.0); HEMOGLOBIN 14.1 g/dl (14.0-18.0); LYMPHOCYTES # 1.1 10^3/ul (0.8-2.9); LYMPHOCYTES % 15.6 % (15.0-51.0); MEAN CORPUSCULAR HEMOGLOBIN 33.4 pg (29.0-33.0); MEAN CORPUSCULAR HGB CONC 32.2 g/dl (32.0-37.0); MEAN CORPUSCULAR VOLUME 103.8 fl (82.0-101.0); MEAN PLATELET VOLUME 11.3 fl (7.4-10.4); MONOCYTE # 0.2 10^3/ul (0.3-0.9); MONOCYTES % 3.4 % (0.0-11.0); NEUTROPHIL # 4.9 10^3/ul (1.6-7.5); NEUTROPHILS % 71.8 % (39.0-77.0); PLATELET COUNT 290 10^3/UL (140-415); POSITIVE DIFF @See below; RED BLOOD COUNT 4.22 10^6/ul (4.70-6.10); RED CELL DISTRIBUTION WIDTH 19.1 % (11.5-14.5)
[2018-10-18 05:35] LABS: WHITE BLOOD COUNT 6.9 10^3/ul (4.8-10.8)
[2018-10-18 06:03] LABS: ANION GAP 3 (5-13); BLOOD UREA NITROGEN 24 mg/dl (7-20); CALCIUM 7.9 mg/dl (8.4-10.2); CARBON DIOXIDE 34 mmol/L (21-31); CHLORIDE 100 mmol/L (97-110); CREATININE 0.64 mg/dl (0.61-1.24); GLUCOSE 147 mg/dl (70-220); POTASSIUM 4.5 mmol/L (3.5-5.1); SODIUM 137 mmol/L (135-144)
[2018-10-18 08:00] LABS: ANISOCYTOSIS 2+ (0-0); BAND NEUTROPHILS #M 0.4 10^3/ul (0.0-0.6); BAND NEUTROPHILS % (M) 7 % (0-4); EOSINOPHILS % (M) 1 % (0-7); GIANT THROMBO% (M) 1 % (0-0); LYMPHOCYTES #M 0.6 10^3/ul (0.8-2.9); LYMPHOCYTES % (M) 9 % (15-51); MYELOCYTES % (M) 1 % (0-0); OVALOCYTES 1+ (0-0); PLATELET ESTIMATE NORMAL; POIKILOCYTOSIS 1+ (0-0); POLYCHROMASIA 1+ (0-0); REACTIVE LYMPHOCYTES #M 0.2 10^3/ul (0.0-0.0); REACTIVE LYMPHOCYTES% (M) 3 % (0-0); SEG NEUT #M 5.5 10^3/ul (1.6-7.5); SEGMENTED NEUTROPHILS (M) % 79 % (39-77); SMUDGE%M 8 % (0-0)
[2018-10-18] MEDS: AMIODARONE 200 MG TAB NGT (09:20)
[2018-10-18] MEDS: LISINOPRIL 20 MG TAB PO (09:20)
[2018-10-18] MEDS: ESCITALOPRAM 10 MG TAB NGT (09:20)
[2018-10-18] MEDS: LEVETIRACETAM 500 MG (PMX) 100 ML IVPB ×2 (09:20→22:46)
[2018-10-18] MEDS: FAMOTIDINE 20 MG TAB NGT (09:20)
[2018-10-18] MEDS: INSULIN DETEMIR [LEVEMIR] (100 UNITS/ML) SYG SC ×3 (09:24→23:59)
[2018-10-18] MEDS: ATORVASTATIN 80 MG TAB NGT (22:46)
[2018-10-19 05:21] LABS: ADD MAN DIFF? NO; BASOPHIL # 0.1 10^3/ul (0.0-0.1); BASOPHILS % 1.2 % (0.0-2.0); EOSINOPHILS # 0.2 10^3/ul (0.0-0.5); EOSINOPHILS % 2.6 % (0.0-7.0); HEMATOCRIT 44.2 % (42.0-52.0); LYMPHOCYTES # 1.1 10^3/ul (0.8-2.9); LYMPHOCYTES % 14.4 % (15.0-51.0); MEAN CORPUSCULAR HEMOGLOBIN 33.3 pg (29.0-33.0); MEAN CORPUSCULAR HGB CONC 31.7 g/dl (32.0-37.0); MEAN CORPUSCULAR VOLUME 105.2 fl (82.0-101.0); MEAN PLATELET VOLUME 10.9 fl (7.4-10.4); MONOCYTE # 0.3 10^3/ul (0.3-0.9); MONOCYTES % 4.2 % (0.0-11.0); NEUTROPHIL # 5.4 10^3/ul (1.6-7.5); NEUTROPHILS % 72.9 % (39.0-77.0); PLATELET COUNT 304 10^3/UL (140-415); RED CELL DISTRIBUTION WIDTH 18.6 % (11.5-14.5)
[2018-10-19 05:21] LABS: WHITE BLOOD COUNT 7.4 10^3/ul (4.8-10.8)
[2018-10-19] MEDS: INSULIN ASPART [NOVOLOG] 3 ML PEN SC ×3 (05:32→17:58)
[2018-10-19 06:12] LABS: ANION GAP 5 (5-13); BLOOD UREA NITROGEN 22 mg/dl (7-20); CALCIUM 7.9 mg/dl (8.4-10.2); CARBON DIOXIDE 33 mmol/L (21-31); CHLORIDE 99 mmol/L (97-110); GLUCOSE 99 mg/dl (70-220); POTASSIUM 4.5 mmol/L (3.5-5.1); SODIUM 137 mmol/L (135-144)
[2018-10-19] MEDS: INSULIN DETEMIR [LEVEMIR] (100 UNITS/ML) SYG SC ×2 (08:43→22:42)
[2018-10-19] MEDS: FAMOTIDINE 20 MG TAB NGT (09:34)
[2018-10-19] MEDS: AMIODARONE 200 MG TAB NGT (09:35)
[2018-10-19] MEDS: ESCITALOPRAM 10 MG TAB NGT (09:35)
[2018-10-19] MEDS: LEVETIRACETAM 500 MG (PMX) 100 ML IVPB ×2 (09:35→22:45)
[2018-10-19] MEDS: LISINOPRIL 20 MG TAB PO (09:35)
[2018-10-19] MEDS: ATORVASTATIN 80 MG TAB NGT (22:40)
[2018-10-20 05:26] LABS: ADD MAN DIFF? NO
[2018-10-20 05:39] LABS: BASOPHIL # 0.1 10^3/ul (0.0-0.1); BASOPHILS % 1.2 % (0.0-2.0); EOSINOPHILS # 0.3 10^3/ul (0.0-0.5); EOSINOPHILS % 3.7 % (0.0-7.0); HEMATOCRIT 41.7 % (42.0-52.0); HEMOGLOBIN 13.7 g/dl (14.0-18.0); LYMPHOCYTES # 1.1 10^3/ul (0.8-2.9); LYMPHOCYTES % 13.2 % (15.0-51.0); MEAN CORPUSCULAR HEMOGLOBIN 34.1 pg (29.0-33.0); MEAN CORPUSCULAR HGB CONC 32.9 g/dl (32.0-37.0); MEAN CORPUSCULAR VOLUME 103.7 fl (82.0-101.0); MEAN PLATELET VOLUME 11.6 fl (7.4-10.4); MONOCYTE # 0.3 10^3/ul (0.3-0.9); MONOCYTES % 3.5 % (0.0-11.0); NEUTROPHIL # 6.3 10^3/ul (1.6-7.5); NEUTROPHILS % 73.7 % (39.0-77.0); PLATELET COUNT 320 10^3/UL (140-415); POSITIVE DIFF @See below; RED BLOOD COUNT 4.02 10^6/ul (4.70-6.10); RED CELL DISTRIBUTION WIDTH 18.4 % (11.5-14.5)
[2018-10-20 05:39] LABS: WHITE BLOOD COUNT 8.5 10^3/ul (4.8-10.8)
[2018-10-20] MEDS: INSULIN ASPART [NOVOLOG] 3 ML PEN SC ×5 (06:00→23:29)
[2018-10-20 06:12] LABS: ANION GAP 3 (5-13); BLOOD UREA NITROGEN 20 mg/dl (7-20); CARBON DIOXIDE 35 mmol/L (21-31); CHLORIDE 98 mmol/L (97-110); CREATININE 0.57 mg/dl (0.61-1.24); GLUCOSE 68 mg/dl (70-220); POTASSIUM 4.2 mmol/L (3.5-5.1); SODIUM 136 mmol/L (135-144)
[2018-10-20] MEDS: INSULIN DETEMIR [LEVEMIR] (100 UNITS/ML) SYG SC ×2 (08:00→20:12)
[2018-10-20] MEDS: ESCITALOPRAM 10 MG TAB NGT (08:19)
[2018-10-20] MEDS: FAMOTIDINE 20 MG TAB NGT (08:19)
[2018-10-20] MEDS: LEVETIRACETAM 500 MG (PMX) 100 ML IVPB ×2 (08:19→20:31)
[2018-10-20] MEDS: LISINOPRIL 10 MG TAB PO (08:19)
[2018-10-20] MEDS: AMIODARONE 200 MG TAB NGT (08:19)
[2018-10-20] MEDS: ATORVASTATIN 80 MG TAB NGT (20:10)
[2018-10-20] MEDS ORDERED: morphine LIQ (10 MG/5 ML) CUP NGT (23:00)
[2018-10-21] MEDS: INSULIN ASPART [NOVOLOG] 3 ML PEN SC ×3 (05:32→17:45)
[2018-10-21 07:56] LABS: ADD MAN DIFF? NO
[2018-10-21 08:03] LABS: BASOPHIL # 0.1 10^3/ul (0.0-0.1); BASOPHILS % 1.4 % (0.0-2.0); EOSINOPHILS # 0.3 10^3/ul (0.0-0.5); EOSINOPHILS % 3.6 % (0.0-7.0); HEMATOCRIT 41.7 % (42.0-52.0); HEMOGLOBIN 13.4 g/dl (14.0-18.0); LYMPHOCYTES # 0.9 10^3/ul (0.8-2.9); LYMPHOCYTES % 10.6 % (15.0-51.0); MEAN CORPUSCULAR HEMOGLOBIN 33.4 pg (29.0-33.0); MEAN CORPUSCULAR HGB CONC 32.1 g/dl (32.0-37.0); MEAN PLATELET VOLUME 11.2 fl (7.4-10.4); MONOCYTE # 0.3 10^3/ul (0.3-0.9); MONOCYTES % 3.6 % (0.0-11.0); NEUTROPHIL # 6.2 10^3/ul (1.6-7.5); NEUTROPHILS % 76.8 % (39.0-77.0); PLATELET COUNT 337 10^3/UL (140-415); POSITIVE DIFF @See below; RED BLOOD COUNT 4.01 10^6/ul (4.70-6.10); RED CELL DISTRIBUTION WIDTH 18.2 % (11.5-14.5)
[2018-10-21 08:03] LABS: WHITE BLOOD COUNT 8.1 10^3/ul (4.8-10.8)
[2018-10-21 08:35] LABS: ANION GAP 1 (5-13); BLOOD UREA NITROGEN 18 mg/dl (7-20); CALCIUM 7.9 mg/dl (8.4-10.2); CARBON DIOXIDE 35 mmol/L (21-31); CHLORIDE 99 mmol/L (97-110); CREATININE 0.51 mg/dl (0.61-1.24); GLUCOSE 113 mg/dl (70-220); POTASSIUM 4.1 mmol/L (3.5-5.1); SODIUM 135 mmol/L (135-144)
[2018-10-21] MEDS: LEVETIRACETAM 500 MG (PMX) 100 ML IVPB ×2 (09:19→22:17)
[2018-10-21] MEDS: INSULIN DETEMIR [LEVEMIR] (100 UNITS/ML) SYG SC (09:20)
[2018-10-21] MEDS: AMIODARONE 200 MG TAB NGT (09:20)
[2018-10-21] MEDS: FAMOTIDINE 20 MG TAB NGT (09:21)
[2018-10-21] MEDS: LISINOPRIL 10 MG TAB PO (09:21)
[2018-10-21] MEDS: ESCITALOPRAM 10 MG TAB NGT (09:21)
[2018-10-21] MEDS: CLONIDINE 0.1 MG/24 HR PATCH TRANSDERM (12:06)
[2018-10-21 18:31] LABS: ADD UMIC YES; UR ASCORBIC ACID 40 mg/dL (NEGATIVE); UR BACTERIA FEW /HPF (NONE SEEN); UR BILIRUBIN (Dip) NEGATIVE (NEGATIVE); UR BLOOD (Dip) NEGATIVE (NEGATIVE); UR CLARITY CLEAR (CLEAR); UR COLOR YELLOW (YELLOW); UR GLUCOSE (Dip) NEGATIVE (NEGATIVE); UR KETONES (Dip) NEGATIVE (NEGATIVE); UR LEUKOCYTE ESTERASE (Dip) NEGATIVE Leu/ul (NEGATIVE); UR NITRITE (Dip) NEGATIVE (NEGATIVE); UR RBC 10 /HPF (0-5); UR SPECIFIC GRAVITY (Dip) 1.016 (1.003-1.030); UR TOTAL PROTEIN (Dip) 1+ mg/dl (NEGATIVE); UR UROBILINOGEN (Dip) 2+ mg/dL (NEGATIVE); UR WBC 7 /HPF (0-5)
[2018-10-21] MEDS: ATORVASTATIN 80 MG TAB NGT (22:13)
[2018-10-22] MEDS: INSULIN DETEMIR [LEVEMIR] (100 UNITS/ML) SYG SC ×3 (01:08→20:07)
[2018-10-22] MEDS: INSULIN ASPART [NOVOLOG] 3 ML PEN SC ×4 (05:54→17:54)
[2018-10-22] MEDS ORDERED: INSULIN DETEMIR [LEVEMIR] (100 UNITS/ML) SYG SC (08:00)
[2018-10-22] MEDS: LISINOPRIL 10 MG TAB PO (10:17)
[2018-10-22] MEDS: LEVETIRACETAM 500 MG (PMX) 100 ML IVPB ×2 (10:18→20:47)
[2018-10-22] MEDS: AMIODARONE 200 MG TAB NGT (10:18)
[2018-10-22] MEDS: ESCITALOPRAM 10 MG TAB NGT (10:18)
[2018-10-22] MEDS: FAMOTIDINE 20 MG TAB NGT (10:18)
[2018-10-22] MEDS: ATORVASTATIN 80 MG TAB NGT (20:49)
[2018-10-22] MEDS: NYSTATIN 30 GM POWDER BTL TOP (20:49)
[2018-10-23 05:49] LABS: ADD MAN DIFF? NO
[2018-10-23 05:53] LABS: WHITE BLOOD COUNT 9.7 10^3/ul (4.8-10.8)
[2018-10-23 05:53] LABS: BASOPHIL # 0.2 10^3/ul (0.0-0.1); EOSINOPHILS # 0.4 10^3/ul (0.0-0.5); EOSINOPHILS % 3.7 % (0.0-7.0); HEMATOCRIT 44.4 % (42.0-52.0); HEMOGLOBIN 14.1 g/dl (14.0-18.0); LYMPHOCYTES % 9.8 % (15.0-51.0); MEAN CORPUSCULAR HEMOGLOBIN 33.1 pg (29.0-33.0); MEAN CORPUSCULAR HGB CONC 31.8 g/dl (32.0-37.0); MEAN CORPUSCULAR VOLUME 104.2 fl (82.0-101.0); MEAN PLATELET VOLUME 10.7 fl (7.4-10.4); MONOCYTE # 0.5 10^3/ul (0.3-0.9); MONOCYTES % 5.5 % (0.0-11.0); NEUTROPHIL # 7.5 10^3/ul (1.6-7.5); NEUTROPHILS % 77.4 % (39.0-77.0); PLATELET COUNT 359 10^3/UL (140-415); RED BLOOD COUNT 4.26 10^6/ul (4.70-6.10); RED CELL DISTRIBUTION WIDTH 18.2 % (11.5-14.5)
[2018-10-23] MEDS: INSULIN ASPART [NOVOLOG] 3 ML PEN SC ×4 (06:00→17:31)
[2018-10-23 06:27] LABS: ANION GAP 5 (5-13); BLOOD UREA NITROGEN 17 mg/dl (7-20); CALCIUM 7.9 mg/dl (8.4-10.2); CARBON DIOXIDE 33 mmol/L (21-31); CHLORIDE 98 mmol/L (97-110); CREATININE 0.52 mg/dl (0.61-1.24); GLUCOSE 82 mg/dl (70-220); POTASSIUM 4.3 mmol/L (3.5-5.1); SODIUM 136 mmol/L (135-144)
[2018-10-23] MEDS: INSULIN DETEMIR [LEVEMIR] (100 UNITS/ML) SYG SC ×2 (10:06→20:10)
[2018-10-23] MEDS: LEVETIRACETAM 500 MG (PMX) 100 ML IVPB ×2 (10:06→20:41)
[2018-10-23] MEDS: ESCITALOPRAM 10 MG TAB NGT (10:07)
[2018-10-23] MEDS: LISINOPRIL 10 MG TAB PO (10:07)
[2018-10-23] MEDS: FAMOTIDINE 20 MG TAB NGT (10:07)
[2018-10-23] MEDS: NYSTATIN 30 GM POWDER BTL TOP ×2 (10:08→20:43)
[2018-10-23] MEDS: AMIODARONE 200 MG TAB NGT (10:08)
[2018-10-23] MEDS: DEXTROSE 50% 50 ML SYRINGE IV (17:32)
[2018-10-23] MEDS: ATORVASTATIN 80 MG TAB NGT (20:41)
[2018-10-24] MEDS: INSULIN ASPART [NOVOLOG] 3 ML PEN SC ×4 (05:51→17:15)
[2018-10-24] MEDS: INSULIN DETEMIR [LEVEMIR] (100 UNITS/ML) SYG SC ×2 (08:14→20:23)
[2018-10-24] MEDS: FAMOTIDINE 20 MG TAB NGT (08:15)
[2018-10-24] MEDS: AMIODARONE 200 MG TAB NGT (08:15)
[2018-10-24] MEDS: ESCITALOPRAM 10 MG TAB NGT (08:15)
[2018-10-24] MEDS: LEVETIRACETAM 500 MG (PMX) 100 ML IVPB ×2 (08:18→22:25)
[2018-10-24] MEDS: LISINOPRIL 20 MG TAB PO (08:18)
[2018-10-24] MEDS: NYSTATIN 30 GM POWDER BTL TOP ×2 (08:18→20:23)
[2018-10-24] MEDS: ATORVASTATIN 80 MG TAB NGT (20:19)
[2018-10-25] MEDS: INSULIN ASPART [NOVOLOG] 3 ML PEN SC ×4 (00:13→17:12)
[2018-10-25] MEDS: ESCITALOPRAM 10 MG TAB NGT (08:27)
[2018-10-25] MEDS: FAMOTIDINE 20 MG TAB NGT (08:27)
[2018-10-25] MEDS: INSULIN DETEMIR [LEVEMIR] (100 UNITS/ML) SYG SC ×2 (08:28→21:18)
[2018-10-25] MEDS: LISINOPRIL 20 MG TAB PO (08:29)
[2018-10-25] MEDS: LEVETIRACETAM 500 MG (PMX) 100 ML IVPB ×2 (08:29→21:18)
[2018-10-25] MEDS: AMIODARONE 200 MG TAB NGT (08:29)
[2018-10-25] MEDS: NYSTATIN 30 GM POWDER BTL TOP ×2 (08:30→21:21)
[2018-10-25] MEDS: ATORVASTATIN 80 MG TAB NGT (21:20)
[2018-10-26] MEDS: INSULIN ASPART [NOVOLOG] 3 ML PEN SC ×5 (05:48→23:45)
[2018-10-26] MEDS: LEVETIRACETAM 500 MG (PMX) 100 ML IVPB ×2 (08:55→21:36)
[2018-10-26] MEDS: ESCITALOPRAM 10 MG TAB NGT (09:01)
[2018-10-26] MEDS: LISINOPRIL 20 MG TAB PO (09:06)
[2018-10-26] MEDS: AMIODARONE 200 MG TAB NGT (09:06)
[2018-10-26] MEDS: FAMOTIDINE 20 MG TAB NGT (09:06)
[2018-10-26] MEDS: NYSTATIN 30 GM POWDER BTL TOP ×2 (09:07→21:36)
[2018-10-26] MEDS: INSULIN DETEMIR [LEVEMIR] (100 UNITS/ML) SYG SC ×2 (09:10→21:33)
[2018-10-26] MEDS: ATORVASTATIN 80 MG TAB NGT (21:34)
[2018-10-26] MEDS: DOCUSATE SODIUM 10 MG/ML (10ML CUP) NGT (21:34)
[2018-10-27] MEDS: INSULIN ASPART [NOVOLOG] 3 ML PEN SC ×3 (05:54→17:45)
[2018-10-27 05:56] LABS: ADD MAN DIFF? NO
[2018-10-27 05:59] LABS: WHITE BLOOD COUNT 6.8 10^3/ul (4.8-10.8)
[2018-10-27 05:59] LABS: BASOPHIL # 0.2 10^3/ul (0.0-0.1); BASOPHILS % 2.2 % (0.0-2.0); EOSINOPHILS # 0.4 10^3/ul (0.0-0.5); EOSINOPHILS % 5.9 % (0.0-7.0); HEMATOCRIT 41.9 % (42.0-52.0); HEMOGLOBIN 13.3 g/dl (14.0-18.0); LYMPHOCYTES # 0.9 10^3/ul (0.8-2.9); LYMPHOCYTES % 13.5 % (15.0-51.0); MEAN CORPUSCULAR HEMOGLOBIN 33.4 pg (29.0-33.0); MEAN CORPUSCULAR HGB CONC 31.7 g/dl (32.0-37.0); MEAN CORPUSCULAR VOLUME 105.3 fl (82.0-101.0); MEAN PLATELET VOLUME 10.1 fl (7.4-10.4); MONOCYTE # 0.3 10^3/ul (0.3-0.9); NEUTROPHIL # 4.9 10^3/ul (1.6-7.5); NEUTROPHILS % 72.2 % (39.0-77.0); PLATELET COUNT 387 10^3/UL (140-415); RED BLOOD COUNT 3.98 10^6/ul (4.70-6.10); RED CELL DISTRIBUTION WIDTH 17.3 % (11.5-14.5)
[2018-10-27 06:20] LABS: ANION GAP 0 (5-13); BLOOD UREA NITROGEN 19 mg/dl (7-20); CALCIUM 7.9 mg/dl (8.4-10.2); CARBON DIOXIDE 38 mmol/L (21-31); CHLORIDE 98 mmol/L (97-110); CREATININE 0.55 mg/dl (0.61-1.24); GLUCOSE 98 mg/dl (70-220); POTASSIUM 4.1 mmol/L (3.5-5.1); SODIUM 136 mmol/L (135-144)
[2018-10-27] MEDS: FAMOTIDINE 20 MG TAB NGT (08:35)
[2018-10-27] MEDS: INSULIN DETEMIR [LEVEMIR] (100 UNITS/ML) SYG SC ×3 (08:35→21:31)
[2018-10-27] MEDS: ESCITALOPRAM 10 MG TAB NGT (08:35)
[2018-10-27] MEDS: LISINOPRIL 20 MG TAB PO (08:35)
[2018-10-27] MEDS: AMIODARONE 200 MG TAB NGT (08:35)
[2018-10-27] MEDS: DOCUSATE SODIUM 10 MG/ML (10ML CUP) NGT ×2 (08:36→20:27)
[2018-10-27] MEDS: NYSTATIN 30 GM POWDER BTL TOP ×2 (08:36→20:28)
[2018-10-27] MEDS: LEVETIRACETAM 500 MG (PMX) 100 ML IVPB ×2 (12:00→20:27)
[2018-10-27] MEDS: ATORVASTATIN 80 MG TAB NGT (20:27)
[2018-10-28 05:44] LABS: ADD MAN DIFF? NO
[2018-10-28 05:48] LABS: BASOPHIL # 0.2 10^3/ul (0.0-0.1); BASOPHILS % 2.3 % (0.0-2.0); EOSINOPHILS # 0.5 10^3/ul (0.0-0.5); EOSINOPHILS % 6.6 % (0.0-7.0); HEMATOCRIT 43.1 % (42.0-52.0); HEMOGLOBIN 13.8 g/dl (14.0-18.0); LYMPHOCYTES # 0.9 10^3/ul (0.8-2.9); LYMPHOCYTES % 11.4 % (15.0-51.0); MEAN CORPUSCULAR HEMOGLOBIN 33.8 pg (29.0-33.0); MEAN CORPUSCULAR VOLUME 105.6 fl (82.0-101.0); MEAN PLATELET VOLUME 10.5 fl (7.4-10.4); MONOCYTE # 0.5 10^3/ul (0.3-0.9); MONOCYTES % 5.6 % (0.0-11.0); NEUTROPHIL # 5.9 10^3/ul (1.6-7.5); NEUTROPHILS % 72.6 % (39.0-77.0); PLATELET COUNT 418 10^3/UL (140-415); RED BLOOD COUNT 4.08 10^6/ul (4.70-6.10); RED CELL DISTRIBUTION WIDTH 17.2 % (11.5-14.5)
[2018-10-28 05:48] LABS: WHITE BLOOD COUNT 8.2 10^3/ul (4.8-10.8)
[2018-10-28] MEDS: INSULIN ASPART [NOVOLOG] 3 ML PEN SC ×4 (06:00→18:43)
[2018-10-28 06:23] LABS: ANION GAP 9 (5-13); BLOOD UREA NITROGEN 18 mg/dl (7-20); CALCIUM 8.1 mg/dl (8.4-10.2); CARBON DIOXIDE 35 mmol/L (21-31); CHLORIDE 93 mmol/L (97-110); CREATININE 0.57 mg/dl (0.61-1.24); GLUCOSE 92 mg/dl (70-220); POTASSIUM 4.2 mmol/L (3.5-5.1); SODIUM 137 mmol/L (135-144)
[2018-10-28] MEDS: LEVETIRACETAM 500 MG (PMX) 100 ML IVPB ×2 (09:47→21:07)
[2018-10-28] MEDS: DOCUSATE SODIUM 10 MG/ML (10ML CUP) NGT ×2 (09:47→21:08)
[2018-10-28] MEDS: FAMOTIDINE 20 MG TAB NGT (09:52)
[2018-10-28] MEDS: AMIODARONE 200 MG TAB NGT (09:52)
[2018-10-28] MEDS: ESCITALOPRAM 10 MG TAB NGT (09:52)
[2018-10-28] MEDS: LISINOPRIL 20 MG TAB PO (09:53)
[2018-10-28] MEDS: INSULIN DETEMIR [LEVEMIR] (100 UNITS/ML) SYG SC ×2 (09:54→21:07)
[2018-10-28] MEDS ORDERED: CLONIDINE 0.1 MG/24 HR PATCH TRANSDERM (11:30)
[2018-10-28] MEDS: NYSTATIN 30 GM POWDER BTL TOP ×2 (12:33→21:09)
[2018-10-28] MEDS: CLONIDINE 0.1 MG/24 HR PATCH TRANSDERM (12:34)
[2018-10-28] MEDS: ATORVASTATIN 80 MG TAB NGT (21:08)
[2018-10-29] MEDS: INSULIN ASPART [NOVOLOG] 3 ML PEN SC ×4 (06:00→18:00)
[2018-10-29] MEDS: DEXTROSE 50% 50 ML SYRINGE IV ×2 (06:09→18:31)
[2018-10-29 06:21] LABS: ADD MAN DIFF? NO
[2018-10-29 06:24] LABS: BASOPHIL # 0.2 10^3/ul (0.0-0.1); BASOPHILS % 2.4 % (0.0-2.0); EOSINOPHILS # 0.6 10^3/ul (0.0-0.5); EOSINOPHILS % 6.1 % (0.0-7.0); HEMATOCRIT 41.9 % (42.0-52.0); HEMOGLOBIN 13.4 g/dl (14.0-18.0); LYMPHOCYTES # 1.4 10^3/ul (0.8-2.9); LYMPHOCYTES % 14.2 % (15.0-51.0); MEAN CORPUSCULAR HEMOGLOBIN 33.4 pg (29.0-33.0); MEAN CORPUSCULAR VOLUME 104.5 fl (82.0-101.0); MEAN PLATELET VOLUME 10.5 fl (7.4-10.4); MONOCYTE # 0.6 10^3/ul (0.3-0.9); MONOCYTES % 5.5 % (0.0-11.0); NEUTROPHILS % 69.8 % (39.0-77.0); PLATELET COUNT 494 10^3/UL (140-415); RED BLOOD COUNT 4.01 10^6/ul (4.70-6.10); RED CELL DISTRIBUTION WIDTH 17.1 % (11.5-14.5)
[2018-10-29 06:45] LABS: INR 1.07; PT RATIO 1.1
[2018-10-29 07:15] LABS: ALANINE AMINOTRANSFERASE 21 IU/L (13-69); ALBUMIN 2.7 g/dl (3.3-4.9); ALBUMIN/GLOBULIN RATIO 0.84; ALKALINE PHOSPHATASE 102 IU/L (42-121); ANION GAP 9 (5-13); ASPARTATE AMINO TRANSFERASE 23 IU/L (15-46); BILIRUBIN,INDIRECT 0.4 mg/dl (0-1.1); BILIRUBIN,TOTAL 0.4 mg/dl (0.2-1.3); BLOOD UREA NITROGEN 18 mg/dl (7-20); CALCIUM 8.1 mg/dl (8.4-10.2); CARBON DIOXIDE 35 mmol/L (21-31); CHLORIDE 93 mmol/L (97-110); GLUCOSE 52 mg/dl (70-220); POTASSIUM 4.1 mmol/L (3.5-5.1); SODIUM 137 mmol/L (135-144); TOTAL PROTEIN 5.9 g/dl (6.1-8.1)
[2018-10-29] MEDS: INSULIN DETEMIR [LEVEMIR] (100 UNITS/ML) SYG SC ×2 (08:00→20:57)
[2018-10-29] MEDS: DEXTROSE 5%-0.9% NACL 1,000 ML IV (08:29)
[2018-10-29] MEDS: DOCUSATE SODIUM 10 MG/ML (10ML CUP) NGT ×2 (08:35→20:47)
[2018-10-29] MEDS: LEVETIRACETAM 500 MG (PMX) 100 ML IVPB ×2 (08:40→22:20)
[2018-10-29] MEDS: AMIODARONE 200 MG TAB NGT (08:43)
[2018-10-29] MEDS: FAMOTIDINE 20 MG TAB NGT (08:44)
[2018-10-29] MEDS: ESCITALOPRAM 10 MG TAB NGT (08:44)
[2018-10-29] MEDS: LISINOPRIL 20 MG TAB PO (08:44)
[2018-10-29] MEDS: NYSTATIN 30 GM POWDER BTL TOP ×2 (08:45→22:19)
[2018-10-29] MEDS: FENTAnyl 50 MCG/ML VIAL (12:23)
[2018-10-29] MEDS: PROPOFOL 20 ML (12:23)
[2018-10-29] MEDS: DEXTROSE 50% 50 ML SYRINGE (12:27)
[2018-10-29] MEDS ORDERED: ONDANSETRON 4 MG INJ IV (12:30)
[2018-10-29] MEDS: CEFAZOLIN 2 GM/50 ML (PMX) 50 ML IVPB ×2 (12:42)
[2018-10-29] MEDS: ATORVASTATIN 80 MG TAB NGT (20:47)
[2018-10-29] MEDS: hydrOXYzine HCL 25 MG TAB PO (20:56)
[2018-10-30] MEDS: hydrOXYzine HCL 25 MG TAB PO ×2 (02:24→12:22)
[2018-10-30] MEDS: INSULIN ASPART [NOVOLOG] 3 ML PEN SC ×5 (06:00→23:47)
[2018-10-30] MEDS: INSULIN DETEMIR [LEVEMIR] (100 UNITS/ML) SYG SC ×2 (08:00→20:48)
[2018-10-30] MEDS: LEVETIRACETAM 500 MG (PMX) 100 ML IVPB ×2 (08:51→20:46)
[2018-10-30] MEDS: DOCUSATE SODIUM 10 MG/ML (10ML CUP) NGT ×2 (08:51→20:47)
[2018-10-30] MEDS: FAMOTIDINE 20 MG TAB NGT (08:52)
[2018-10-30] MEDS: ESCITALOPRAM 10 MG TAB NGT (08:52)
[2018-10-30] MEDS: LISINOPRIL 20 MG TAB PO (08:53)
[2018-10-30] MEDS: AMIODARONE 200 MG TAB NGT (08:59)
[2018-10-30] MEDS: NYSTATIN 30 GM POWDER BTL TOP ×2 (09:31→21:57)
[2018-10-30] MEDS: DEXTROSE 50% 50 ML SYRINGE IV ×2 (12:17→18:01)
[2018-10-30] MEDS ORDERED: hydrALAzine 20 MG INJ IV (13:00)
[2018-10-30] MEDS: CLONIDINE 0.2 MG/24 HR PATCH TRANSDERM (15:32)
[2018-10-30] MEDS: AMLODIPINE 5 MG TAB PO (15:32)
[2018-10-30] MEDS: ATORVASTATIN 80 MG TAB NGT (20:47)
[2018-10-31] MEDS: INSULIN ASPART [NOVOLOG] 3 ML PEN SC ×3 (05:30→17:28)
[2018-10-31] MEDS: INSULIN DETEMIR [LEVEMIR] (100 UNITS/ML) SYG SC ×2 (08:00→22:22)
[2018-10-31] MEDS: DOCUSATE SODIUM 10 MG/ML (10ML CUP) NGT ×2 (08:58→22:23)
[2018-10-31] MEDS: LISINOPRIL 20 MG TAB PO (08:58)
[2018-10-31] MEDS: AMLODIPINE 5 MG TAB PO (08:58)
[2018-10-31] MEDS: FAMOTIDINE 20 MG TAB NGT (08:58)
[2018-10-31] MEDS: LEVETIRACETAM 500 MG (PMX) 100 ML IVPB ×2 (08:59→22:23)
[2018-10-31] MEDS: ESCITALOPRAM 10 MG TAB NGT (08:59)
[2018-10-31] MEDS: AMIODARONE 200 MG TAB NGT (08:59)
[2018-10-31] MEDS: NYSTATIN 30 GM POWDER BTL TOP ×2 (09:07→22:31)
[2018-10-31] MEDS: BISACODYL 10 MG SUPP PR (15:14)
[2018-10-31] MEDS: ATORVASTATIN 80 MG TAB NGT (22:23)
[2018-10-31] MEDS: NA PHOSPHATE/BIPHOS 133 ML ENEMA PR (22:30)
[2018-11-01] MEDS: INSULIN ASPART [NOVOLOG] 3 ML PEN SC ×5 (06:00→23:46)
[2018-11-01] MEDS: ESCITALOPRAM 10 MG TAB NGT (09:44)
[2018-11-01] MEDS: AMLODIPINE 5 MG TAB PO (09:45)
[2018-11-01] MEDS: AMIODARONE 200 MG TAB NGT (09:45)
[2018-11-01] MEDS: FAMOTIDINE 20 MG TAB NGT (09:45)
[2018-11-01] MEDS: DOCUSATE SODIUM 10 MG/ML (10ML CUP) NGT ×2 (09:45→20:17)
[2018-11-01] MEDS: LISINOPRIL 20 MG TAB PO (09:45)
[2018-11-01] MEDS: LEVETIRACETAM 500 MG (PMX) 100 ML IVPB ×2 (09:46→20:55)
[2018-11-01] MEDS: INSULIN DETEMIR [LEVEMIR] (100 UNITS/ML) SYG SC ×2 (09:47→20:13)
[2018-11-01] MEDS: NYSTATIN 30 GM POWDER BTL TOP ×2 (09:57→20:10)
[2018-11-01] MEDS: ATORVASTATIN 80 MG TAB NGT (20:17)
[2018-11-02] MEDS: INSULIN ASPART [NOVOLOG] 3 ML PEN SC ×3 (06:00→17:19)
[2018-11-02] MEDS: DOCUSATE SODIUM 10 MG/ML (10ML CUP) NGT (09:09)
[2018-11-02] MEDS: FAMOTIDINE 20 MG TAB NGT (09:09)
[2018-11-02] MEDS: ESCITALOPRAM 10 MG TAB NGT (09:09)
[2018-11-02] MEDS: LISINOPRIL 20 MG TAB PO (09:10)
[2018-11-02] MEDS: AMIODARONE 200 MG TAB NGT (09:10)
[2018-11-02] MEDS: AMLODIPINE 5 MG TAB PO (09:10)
[2018-11-02] MEDS: INSULIN DETEMIR [LEVEMIR] (100 UNITS/ML) SYG SC (09:13)
[2018-11-02] MEDS: LEVETIRACETAM 500 MG (PMX) 100 ML IVPB (09:14)
[2018-11-02] MEDS: NYSTATIN 30 GM POWDER BTL TOP (09:19)
== END 2018-11-02 18:40 | DRG 826 ==
LOC: PP2 10-20 18:17 → ICU 10-10 17:03 → 6WM 10-17 18:06 → E/R 12:56 → 2NE 15:13
PROC: 00940ZZ Drainage of Intracranial Subdural Space, Open Approach (ICD-10-PCS; principal; 2018-10-10 15:00)
PROC: 0DH63UZ Insertion of Feeding Device into Stomach, Percutaneous Approach (ICD-10-PCS; 2018-10-10 15:22)
DX: C7B.8 Other secondary neuroendocrine tumors (principal); I62.02 Nontraumatic subacute subdural hemorrhage; G93.41 Metabolic encephalopathy; N39.0 Urinary tract infection, site not specified; E87.0 Hyperosmolality and hypernatremia; C34.92 Malignant neoplasm of unspecified part of left bronchus or lung; G81.94 Hemiplegia, unspecified affecting left nondominant side; R47.01 Aphasia; N28.9 Disorder of kidney and ureter, unspecified; I10 Essential (primary) hypertension; E11.9 Type 2 diabetes mellitus without complications; E78.5 Hyperlipidemia, unspecified; I25.10 Atherosclerotic heart disease of native coronary artery without angina pectoris; G40.909 Epilepsy, unspecified, not intractable, without status epilepticus; L30.8 Other specified dermatitis; D45 Polycythemia vera; R13.10 Dysphagia, unspecified
CPT/HCPCS: 36600; 70450; 70551; 71045; 74018; 80048; 80053; 80061; 80202; 81001; 82550; 82553; 82803; 82962; 83036; 83605; 83735; 84100; 84484; 85025; 85049; 85610; 85670; 85730; 87040; 87070; 87081; 87086; 87400; 88304; 88312; 88313; 88341; 88342; 92526; 92610; 93005; 93306; 94003; 94770; 95819; 96365; 96375; 97110; 97161; 97530; 99285-25